=== PATIENT | male | born 1935 | race Caucasian/White ===

== ENCOUNTER 2018-04-01 09:16 | Emergency (ER) | payer MEDICARE, BC ==
--- NOTE | 2018-04-01 10:46 | UC ---
Respiratory Complaint HPI - HPI Summary HPI Summary: MD: cough, htn on exam; pulse ox = 96%. Afebrile. Patient is a 82-year-old white male who has a chronic light cough secondary to antihypertensive medication, but who comes to the urgent care center complaining of coughing spasms. He is hard of hearing but is accompanied by his who often relates his past medical history. His blood pressure is elevated but his pulse ox is 96 and he is afebrile. He appears comfortable. The spasms were worse yesterday and today, particularly this morning. Nurses note: pt c/o cough for the past few weeks. pt uses a cpap and since starting this the cough is getting worse. pt states the full face mask 1 week ago. pt states he has so much post nasal drip he starts to cough and cant stop. pt states that pt c/o sore throat yesterday. - History of Current Complaint Chief Complaint: UCRespiratory Stated Complaint: COUGH/ POST NASAL DRIP Time Seen by Provider: 04/01/18 10:42 Pain Intensity: 0 - Allergies/Home Medications Allergies/Adverse Reactions: Allergies Allergy/AdvReac Type Severity Reaction Status Date / Time No Known Allergies Allergy Verified 04/01/18 10:05 Home Medications: Home Medications Aspirin 81 mg PO 04/01/18 [History] Brimonid/Timolol 0.2/0.5%(NF) [Combigan 0.2/0.5% (NF)] 1 nabil OP 04/01/18 [ History] Hydrochlorothiazide TAB* [Hydrodiuril TAB*] 25 mg PO DAILY 04/01/18 [History Confirmed 04/01/18] Travoprost Z 0.004% OPHTH (NF) [Travatan Z 0.004% OPTH (NF)] 1 drop 04/01/18 [ History] amLODIPine/Benazepril 04/01(NF [Lotrel 04/01(NF)] 1 cap PO DAILY 04/01/18 [ History Confirmed 04/01/18] PMH/Surg Hx/FS Hx/Imm Hx - Additional Past Medical History Additional PMH: Family history significant for: -cardiovascular disease Social history: Patient is a retired teacher Previously Healthy: Yes - Surgical History Surgical History: Yes Surgery Procedure, Year, and Place: LEFT HIP REPLACEMENT. CATARACTS. PRESSURE RELEASED FROM EYES - Social History Alcohol Use: Occasionally Substance Use Type: None Smoking Status (MU): Never Smoked Tobacco Review of Systems Constitutional: Negative Respiratory: Shortness Of Breath - no significant SOB, Cough - in spasms, Other - no chest pain Cardiovascular: Negative Is Patient Immunocompromised?: No All Other Systems Reviewed And Are Negative: Yes - Comments Additional Review of Systems Comments: A 12 point review of systems was completed and was significantly positive for: cough. The remainder of the review was negative except as stated above in the HPI. Physical Exam - Summary Physical Exam Summary: Appearance: The patient is well-appearing, is in no pain or distress, and is well-nourished. Eyes: Conjunctiva are clear. Senile arcus. Pupils are equal and reactive to light and accommodation. Extra ocular muscle movement is intact. ENT: The hearing is decreased, the pharynx is normal, and the TMs are normal. There is no muffled or hoarse voice. No stridor. Neck: The neck is supple and there is no lymphadenopathy. Respiratory: The chest is nontender to palpation and without crepitus. The lungs are clear, there are normal breath sounds, and there is no respiratory distress. No wheezes, rales or rhonchi. Cardiovascular: Heart sounds reveal a regular rate and rhythm. There are no clicks, rubs or murmurs. There are no carotid bruits or thrills. Circulation is grossly intact. Abdomen: The abdomen is soft and nontender. There is no organomegaly. Bowel sounds are present and within normal limits. No point tenderness at McBurneys point. Musculoskeletal: Strength is intact. The patient moves all extremities. x. Neurological: The patient is alert. Motor and sensory are examination grossly intact. Speech is normal. Psychological: The patient displays age appropriate behavior Skin: Negative for rashes. Triage Information Reviewed: Yes Vital Signs: Initial Vital Signs Temp 98.9 F 04/01/18 10:00 Pulse 103 04/01/18 10:00 Resp 18 04/01/18 10:00 BP 158/88 04/01/18 10:00 Pulse Ox 96 04/01/18 10:00 Diagnostic Evaluation - Laboratory O2 Sat by Pulse Oximetry: 96 Respiratory Course/Dx - Course Course Of Treatment: MEDICATIONS REVIEWED: Medications have been included in the original chart and reviewed. HYPERTENSION REVIEWED: Patient is on antihypertensive medications. He will follow up in 1-4 weeks with his physician for further evaluation and treatment as needed. Chest x ray: NO ACTIVE CARDIOPULMONARY DISEASE by radiologist. 83-year-old with cough. No evidence of pneumonia or significant respiratory illness. My diagnosis is upper respiratory infection caused by virus. I have discussed this with the patient and his . - Differential Dx/Diagnosis Differential Diagnosis/HQI/PQRI: Bronchitis, Lower Resp Infection, Pneumothorax , Pulmonary Embolism Provider Diagnoses: upper respiratory viral infection Discharge - Sign-Out/Discharge Documenting (check all that apply): Patient Departure All imaging exams completed and their final reports reviewed: Yes - Discharge Plan Condition: Stable Disposition: HOME Patient Education Materials: Chronic Cough (ED), Upper Respiratory Infection ( DC) Referrals: Laura Aparicio MD [Primary Care Provider] - Additional Instructions: WE DISCUSSED: PLEASE SEEK CARE AT THE EMERGENCY DEPARTMENT IF SYMPTOMS WORSEN OR IF NEW SYMPTOMS DEVELOP. FOLLOW UP WITH YOUR PRIMARY CARE PHYSICIAN IF CONDITION CONTINUES BEYOND 3 DAYS WITHOUT IMPROVEMENT. YOUR DIAGNOSIS IS: UPPER RESPIRATORY VIRAL INFECTION YOUR PRESCRIPTION RECOMMENDATION IS: OVER THE COUNTER DECONGESTANT OTHER INSTRUCTIONS: Hypertension Discharge Instructions: Your blood pressure reading today was 158/88 indicating HYPERTENSION. Follow-up with your primary care provider within 4 weeks for blood pressure check and appropriate recommendations and treatment, as needed. Any illness causing cough, congestion, sore throat or sinus discomfort can be helped by doing the following: STAND UNDER SHOWER STREAM TO LOOSEN SECRETIONS. STAY AWAY FROM ANY SMOKE OR IRRITANTS. WHAT ELSE CAN HELP RELIEVE YOUR SYMPTOMS: GENERAL TYPES OF MEDICINE THAT MAY HELP DECONGESTANTS: helps relieve stuffiness and clears sinuses. Pseudoephedrine ( Sudafed or generic) is effective but you need to ask the pharmacist for it because it may be kept behind the counter. ANTIHISTAMINES: are NOT helpful in many colds and flus because they can worsen sore throat, dry eyes and mouth and cause drowsiness. Examples are diphenhydramine, doxylamine and chlorpheniramine. They can help dry you out if you are having profuse, clear drainage from the nose. EXPECTORANTS: helps thin mucous in the nose and chest, making it easier to clear the fluid out. Expectorants are in most combination cough/cold remedies and should be taken with plenty of water. Guaifenesin is the most common expectorant and it comes in pill or liquid form. Mucinex is an extended release form of guaifenesin. COUGH SUPPRESANT: reduces the body's cough reflex. Dextromethorphan is in over the counter products. Rarely, narcotics such as codeine or hydrocodone are used to suppress cough. SPECIFIC MEDICATIONS: Some of these may come in combination. In general, they all contain the same or similar active ingredients. The most important goal is to liquefy all the phlegm and get it out of your head and chest: The following medicines (you can buy them without prescription) may help: To help with cough: DEXTROMETHORPHAN (Vicks, Robitussin, Nyquil and other brands) To help break up phlegm: GUAIFENESIN (Mucinex, Robitussin, other brands) To help clear congestion: PSEUDOEPHEDRINE (Sudafed, Dimetapp, other brands) TRY TO CLEAR NOSE: AFRIN NASAL SPRAY: 2-3 SPRAYS PER NOSTRIL, TWICE A DAY FOR TWO DAYS ONLY. USEFUL WAYS TO FEEL BETTER WITHOUT MEDICATIONS: STAND UNDER SHOWER STREAM TO LOOSEN SECRETIONS. USE A VAPORIZOR. STAY AWAY FROM ANY SMOKE OR IRRITANTS. USE SALINE NASAL SPRAY TO KEEP FLOW OF MUCOUS FROM NOSTRILS AND SINUSES. CONSIDER USING NETI POT TO HELP WITH ALLERGIES AND CONGESTION IN THE NOSE. USE THIS THREE TIMES A WEEK. YOU CAN GET THIS AT [employer] [facility] IN [place] OR VARIOUS [employer]OR[facility]. DRINK LOTS OF WARM FLUIDS USEFUL HOME REMEDIES: WARM WATER GARGLES, WITH TSP OF SALT PER 8 OUNCES OF WATER, GARGLE FOR A FEW SECONDS AND SPIT OUT; GARGLE AND SPIT OUT; EVERY THREE HOURS. AND/OR: WARM WATER OR TEA, HONEY AND LEMON; 2-3 CUPS A DAY. FOR SORE THROAT: KEEP THROAT MOIST WITH LOZENGES; TEA AND HONEY. USE WARM WATER GARGLES 3-4 TIMES A DAY. FOLLOW UP: RE-CHECK IN 1O DAYS, NEEDED, IF YOU ARE NOT IMPROVING. RETURN HERE OR SEE YOUR PHYSICIAN. RE-CHECK SOONER IF INCREASED PAIN OR TEMPERATURE. - Billing Disposition and Condition Condition: STABLE Disposition: Home
--- NOTE | 2018-04-01 11:54 | RAD ---
HISTORY: cough COMPARISONS: April 15, 2005 VIEWS: 4: Frontal dual-energy and lateral views of the chest. FINDINGS: CARDIOMEDIASTINAL SILHOUETTE: The cardiomediastinal silhouette is normal. BUDDY: The buddy are normal. PLEURA: The costophrenic angles are sharp. No pleural abnormalities are noted. LUNG PARENCHYMA: The lungs are clear. ABDOMEN: The upper abdomen is clear. There is no subphrenic gas. BONES AND SOFT TISSUES: Degenerative changes are noted along the spine. OTHER: None. IMPRESSION: NO ACTIVE CARDIOPULMONARY DISEASE.
[2018-04-01 12:29] VITALS: BP 161/82
== END 2018-04-01 12:23 | disposition home or self-care (01) ==
LOC: UCEAST 09:16
DX: J06.9 Acute upper respiratory infection, unspecified (principal); Z96.642 Presence of left artificial hip joint
CPT/HCPCS: 71046; 81003; 99211; G0463

== ENCOUNTER 2018-10-26 17:04 | Observation (INO) | payer MEDICARE, BC ==
--- OUTSIDE RECORDS SUMMARY | 2018-10-26 17:29 | XMS REPORT | Continuity of Care Document ---
:1935 External Reference #:[id number] Author Name Laura Aparicio M.D. Address [address] [facility] [address] [place] [address] Care Team Providers Name Role Phone Laura Aparicio MD Care Team Information Bank Messenger Unavailable Payers Date Identification Numbers Payment Provider Subscriber Policy Number: [id number] Medicare Kash Raines PayID: [id number] [address] [place] [address] Effective: 2011 Policy Number: [id number] [facility] Classic Blue Kash Raines [address] [address] [place] [address] Problems Active Problems Provider Date Benign essential hypertension Laura Aparicio M.D. Onset: 10/28/2011 Osteoarthritis Laura Aparicio M.D. Onset: 10/28/2011 Mixed hyperlipidemia Laura Aparicio M.D. 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 Onset: obstruction Cataract ALL Stahl Onset: 10/28/2011 Glaucoma Laura Aparicio M.D. Onset: 10/28/2011 Hearing loss Laura Aparicio M.D. Onset: 11/13/2012 Low back pain Laura Aparicio M.D. Onset: 11/13/2012 Essential hypertension Laura Aparicio M.D. Onset: 03/25/2015 Family History Date Family Member(s) Observation Comments Father due to at age 97 () Father due to PAssed d/t old age () Mother due to at age 67 () Mother Hypertension Mother due to Cancer () Children 2 First Son 49 First Daughter 47 Siblings 7 First Brother due to Auto Accident () - age 33 Second Brother Hypertension Third Brother heart issues Third Brother 84 First Sister No Current Problems Second Sister Hypertension Third Sister memmory issues Third Sister 88 Third Sister Cancer Fourth Sister Hypertension Social History Type Date Description Comments Sex Unknown Marital Status Legal Status: Tobacco Use Start: Unknown Never Smoked Cigarettes ETOH Use Currently consumes alcohol pt states he drinks a few times a week Tobacco Use Start: Unknown Patient has never smoked Smoking Status Reviewed: 07/04/17 Patient has never smoked Allergies, Adverse Reactions, Alerts Description No Known Drug Allergies Medications Active Medications SIG Qnty Indications Ordering Date Provider Benzonatate 1 cap by 60caps J18.0 Laura Aparicio 06/30/2018 100mg Capsules mouth every 4 M., M.D. hours as needed AT Night Ventolin HFA 2 puff by 1units J18.0 Laura Aparicio 06/30/2018 108(90Base) mcg/Act mouth every 4 M., M.D. Aerosol hours as needed Hearing Aid Adjusment And h90.3 H90.3 Laura Aparicio 06/24/2017 Repair M., M.D. Hydrochlorothiazide 1 tab by 90tabs I10 Laura Aparicio 06/19/2015 25mg Tablets mouth every M., M.D. day Centrum Silver Adult 50+ 1 tab by Laura Aparicio 03/25/2015 Adult 50 mouth every M., M.D. Tablets day Vitamin C 1 by mouth Laura Aparicio 03/25/2015 500mg Tablets every day M., M.D. Aspirin Ec Lo-Dose 1 by mouth I10 Laura Aparicio 02/17/[address] every day M., M.DKarina E78.2 Combigan 1 drop both eyes H40.89 Laura Aparicio, 10/28/2011 0.2-0.5% twice a day M.D. Solution Travatan Z 1 drop both eyes H40.89 Laura Aparicio, 10/28/2011 0.004% every day M.D. Solution Lotrel 1 cap by mouth 90caps I10 Markus, bailey Willis, 10/07/2011 10-40mg Capsules every day M.D. History Medications Azithromycin 1 tab by mouth 10tabs J20.9 [facility] 06/30/2018 - 500mg Tablets every day x 10 M., M.D. 07/10/2018 days Cyanocobalamin inject 1000mcg 1ml F03.90 [facility] 07/26/2017 - 1000mcg/ML today given to l Lazaro MKarinaDKarina 12/11/2017 Solution deltoid Meclizine HCL 1 tab by mouth 90tabs H81.13 [facility] 06/19/2015 - 25mg Tablets every 6 hours as M. M.D. 06/29/2018 needed Prednisone 3 tab by mouth 18tabs [facility] 06/19/2015 - 20mg Tablets daily 3 days, M. M.D. 06/28/2015 then 2 tab daily x 3 d , then 1 tab daily 3d Azithromycin 1 by mouth every 6tabs J20.9 [facility] 06/09/2015 - 500mg Tablets day M., M.D. 06/12/2015 J01.40 Calcium 1000 + D 1 tab by mouth [facility] 03/25/2015 - every day M., M.D. 06/13/2018 2007-391jo-Qeca Tablets Amoxicillin 1 by mouth 30tabs 466.0 [facility] 09/27/2014 - 500mg Tablets three times a M., M.D. 10/07/2014 day 461.8 382.9 Doxycycline Hyclate take 2 capsules 2caps E906.4 [facility] 11/12/2013 - by mouth x1 M., M.D. 11/13/2013 100mg Capsules 682.2 Cipro 1 twice a day 20tabs 599.70 Markus, bailey Willis, 03/01/2012 - 500mg M.D. 03/11/2012 Tablets Zocor 1/2 tab by mouth 90tabs 272.2 Markus, bailey Willis, 02/17/2012 - 20mg every night M.D. 08/17/2012 Tablets Medications Administered in Office Medication SIG Qnty Indications Ordering Provider Date B12 Laura Aparicio M.D. 07/26/2017 Injection Immunizations CPT Code Status Date Vaccine Lot # [id number] Given 03/22/2018 Influenza,Unspecified U-Flu Given 04/04/2017 Influenza,Unspecified [id number] Given 03/15/2016 Flu Vaccine [id number] Given 03/21/2015 Flu Vaccine 3+Yrs Old(Fluzone) 10255 Given 03/29/2014 Flu Vaccine 23429 Given 12/07/2013 TDaP [id number] Given 04/29/2008 Flu Vaccine [id number] Given 04/07/2007 Flu Vaccine Vital Signs Date Vital Result Comment 10/26/2018 4:06pm BP Systolic 146 mmHg BP Diastolic 72 mmHg Height 64 inches 5'4" 06/30/2018 9:05am BP Systolic 144 mmHg BP Diastolic 72 mmHg Height 64 inches 5'4" Weight 179.00 lb BMI (Body Mass Index) 30.7 kg/m2 Heart Rate 97 /min Body Temperature 100.1 F Respiratory Rate 16 /min 06/22/2018 10:28am BP Systolic 126 mmHg BP Diastolic 64 mmHg Height 64 inches 5'4" Weight 183.00 lb BMI (Body Mass Index) 31.4 kg/m2 Heart Rate 92 /min Respiratory Rate 16 /min 01/03/2018 4:08pm BP Systolic 124 mmHg BP Diastolic 72 mmHg Height 64 inches 5'4" Weight 180.00 lb BMI (Body Mass Index) 30.9 kg/m2 Heart Rate 92 /min Respiratory Rate 14 /min 08/22/2017 8:41am BP Systolic 124 mmHg BP Diastolic 80 mmHg Height 64 inches 5'4" Weight 179.00 lb BMI (Body Mass Index) 30.7 kg/m2 Heart Rate 86 /min Respiratory Rate 18 /min 07/26/2017 11:22am BP Systolic 132 mmHg BP Diastolic 80 mmHg Height 64 inches 5'4" Weight 179.00 lb BMI (Body Mass Index) 30.7 kg/m2 Heart Rate 86 /min Respiratory Rate 18 /min 07/04/2017 9:01am BP Systolic 134 mmHg BP Diastolic 78 mmHg Height 64 inches 5'4" Weight 179.00 lb BMI (Body Mass Index) 30.7 kg/m2 Heart Rate 81 /min Respiratory Rate 18 /min 01/11/2017 8:29am BP Systolic 122 mmHg BP Diastolic 64 mmHg Height 64 inches 5'4" Weight 180.00 lb BMI (Body Mass Index) 30.9 kg/m2 Heart Rate 72 /min Respiratory Rate 16 /min 03/24/2016 8:36am BP Systolic 134 mmHg BP Diastolic 78 mmHg Height 64 inches 5'4" Weight 178.00 lb BMI (Body Mass Index) 30.6 kg/m2 Heart Rate 66 /min Respiratory Rate 18 /min 11/13/2015 1:52pm BP Systolic 121 mmHg BP Diastolic 76 mmHg Height 64 inches 5'4" Weight 179.00 lb BMI (Body Mass Index) 30.7 kg/m2 Heart Rate 95 /min Respiratory Rate 16 /min 09/26/2015 9:26am BP Systolic 132 mmHg BP Diastolic 82 mmHg Height 64 inches 5'4" Weight 181.00 lb BMI (Body Mass Index) 31.1 kg/m2 Heart Rate 84 /min Respiratory Rate 18 /min 08/15/2015 8:34am BP Systolic 136 mmHg BP Diastolic 87 mmHg Height 64 inches 5'4" Weight 179.00 lb BMI (Body Mass Index) 30.7 kg/m2 Heart Rate 72 /min Respiratory Rate 18 /min 07/18/2015 4:00pm BP Systolic 150 mmHg BP Diastolic 89 mmHg Height 64 inches 5'4" Weight 177.00 lb BMI (Body Mass Index) 30.4 kg/m2 Heart Rate 90 /min Respiratory Rate 18 /min 06/19/2015 2:34pm BP Systolic 164 mmHg BP Diastolic 91 mmHg Height 64 inches 5'4" Weight 177.00 lb BMI (Body Mass Index) 30.4 kg/m2 Heart Rate 84 /min Respiratory Rate 18 /min 06/09/2015 10:25am BP Systolic 169 mmHg BP Diastolic 91 mmHg Height 64 inches 5'4" Weight 181.00 lb BMI (Body Mass Index) 31.1 kg/m2 Heart Rate 83 /min Body Temperature 97.4 F Respiratory Rate 18 /min 05/19/2015 1:43pm BP Systolic 152 mmHg BP Diastolic 90 mmHg Height 64 inches 5'4" Weight 182.00 lb BMI (Body Mass Index) 31.2 kg/m2 Heart Rate 84 /min Respiratory Rate 18 /min 03/25/2015 8:42am BP Systolic 158 mmHg BP Diastolic 92 mmHg Height 64 inches 5'4" Weight 178.00 lb BMI (Body Mass Index) 30.6 kg/m2 Heart Rate 73 /min Respiratory Rate 18 /min 09/27/2014 9:53am BP Systolic 160 mmHg machine BP Diastolic 95 mmHg machine BP Systolic Recheck 162 mmHg manual BP Diastolic Recheck 88 mmHg manual Height 64 inches 5'4" Weight 178.00 lb BMI (Body Mass Index) 30.6 kg/m2 Heart Rate 86 /min Body Temperature 97.0 F Respiratory Rate 18 /min 08/28/2014 8:52am BP Systolic 144 mmHg BP Diastolic 82 mmHg Height 64 inches 5'4" Weight 176.00 lb BMI (Body Mass Index) 30.2 kg/m2 Heart Rate 75 /min Respiratory Rate 18 /min 02/26/2014 9:43am BP Systolic 149 mmHg BP Diastolic 90 mmHg Height 64 inches 5'4" Weight 180.00 lb BMI (Body Mass Index) 30.9 kg/m2 Heart Rate 82 /min Respiratory Rate 20 /min 12/07/2013 11:28am BP Systolic 144 mmHg BP Diastolic 90 mmHg Height 64 inches 5'4" Weight 180.00 lb BMI (Body Mass Index) 30.9 kg/m2 Heart Rate 102 /min Respiratory Rate 18 /min 11/12/2013 9:21am BP Systolic 143 mmHg BP Diastolic 84 mmHg Height 64 inches 5'4" Weight 174.00 lb BMI (Body Mass Index) 29.9 kg/m2 Heart Rate 79 /min Body Temperature 97.2 F Respiratory Rate 18 /min 09/04/2013 8:36am BP Systolic 147 mmHg BP Diastolic 90 mmHg Height 64 inches 5'4" Weight 182.00 lb BMI (Body Mass Index) 31.2 kg/m2 Heart Rate 80 /min Body Temperature 97.6 F Respiratory Rate 18 /min 06/07/2013 8:58am BP Systolic 145 mmHg BP Diastolic 87 mmHg Height 64 inches 5'4" Weight 179.00 lb BMI (Body Mass Index) 30.7 kg/m2 Heart Rate 78 /min Respiratory Rate 20 /min 05/09/2013 8:56am BP Systolic 150 mmHg BP Diastolic 85 mmHg Height 64 inches 5'4" Weight 180.00 lb BMI (Body Mass Index) 30.9 kg/m2 Heart Rate 75 /min Respiratory Rate 18 /min 05/02/2013 8:26am BP Systolic 164 mmHg BP Diastolic 95 mmHg Height 64 inches 5'4" Weight 179.00 lb BMI (Body Mass Index) 30.7 kg/m2 Heart Rate 78 /min Respiratory Rate 18 /min 02/13/2013 9:22am BP Systolic 122 mmHg BP Diastolic 80 mmHg Height 64 inches 5'4" Weight 178.00 lb BMI (Body Mass Index) 30.6 kg/m2 Heart Rate 74 /min Respiratory Rate 16 /min 11/13/2012 11:09am BP Systolic 150 mmHg BP Diastolic 80 mmHg BP Systolic Recheck 146 mmHg BP Diastolic Recheck 80 mmHg Height 64 inches 5'4" Weight 174.00 lb BMI (Body Mass Index) 29.9 kg/m2 Heart Rate 64 /min Respiratory Rate 20 /min 10/30/2012 1:20pm BP Systolic 138 mmHg BP Diastolic 76 mmHg Height 64 inches 5'4" Weight 177.00 lb BMI (Body Mass Index) 30.4 kg/m2 Heart Rate 78 /min Respiratory Rate 218 /min 08/17/2012 9:53am BP Systolic 140 mmHg BP Diastolic 82 mmHg Height 64 inches 5'4" Weight 179.00 lb BMI (Body Mass Index) 30.7 kg/m2 Heart Rate 81 /min Respiratory Rate 14 /min 08/03/2012 8:59am BP Systolic 130 mmHg BP Diastolic 80 mmHg Height 64 inches 5'4" Weight 179.00 lb BMI (Body Mass Index) 30.7 kg/m2 Heart Rate 79 /min Respiratory Rate 14 /min 07/25/2012 9:37am BP Systolic 134 mmHg BP Diastolic 80 mmHg Height 64 inches 5'4" Weight 178.00 lb BMI (Body Mass Index) 30.6 kg/m2 Heart Rate 83 /min Respiratory Rate 14 /min 03/01/2012 2:20pm BP Systolic 116 mmHg BP Diastolic 68 mmHg Height 64 inches 5'4" Weight 175.00 lb BMI (Body Mass Index) 30.0 kg/m2 Heart Rate 88 /min Respiratory Rate 16 /min 02/28/2012 10:33am BP Systolic 146 mmHg BP Diastolic 56 mmHg Height 64 inches 5'4" Weight 175.00 lb BMI (Body Mass Index) 30.0 kg/m2 Heart Rate 70 /min Last Menstrual Period 0 Respiratory Rate 15 /min 02/17/2012 10:35am BP Systolic 128 mmHg BP Diastolic 70 mmHg Height 64 inches 5'4" Weight 175.00 lb BMI (Body Mass Index) 30.0 kg/m2 Heart Rate 80 /min 10/28/2011 9:40am BP Systolic 125 mmHg BP Diastolic 80 mmHg BP Systolic Recheck 119 mmHg BP Diastolic Recheck 80 mmHg Height 64 inches 5'4" Weight 177.00 lb BMI (Body Mass Index) 30.4 kg/m2 Heart Rate 67 /min Respiratory Rate 14 /min 10/07/2011 10:21am BP Systolic 146 mmHg BP Diastolic 85 mmHg Height 64 inches 5'4" Weight 175.00 lb BMI (Body Mass Index) 30.0 kg/m2 Heart Rate 61 /min Last Menstrual Period 0 Respiratory Rate 14 /min Results Test Date Facility Test Result H/L Range Note Laboratory test 06/22/2018 [facility] Vitamin B12 @ 663 pg/mL (193-986 ) finding [address] (605)- - 25 Hydroxy Vit D @ 43 ng/mL (31-100) 1 Hemoglobin A1c 06/22/2018 [facility] Hemoglobin A1c @ 6.1 % High (4.0- 6.0) 2 [address] (60)- - Est Average Glucose 128 mg/dL CBC With Diff 06/22/2018 [facility] WBC 5.9 10*3/uL (4.1-11.0) [address] (605)- - RBC 4.82 10*6/uL (4.60-6.10) HGB 14.6 g/dL (13.5-18.0) HCT 43.6 % (41.0-53.0) MCV 90.5 fL (80.0-95.0) MCH 30.3 pg (27.0-32.0) MCHC 33.5 g/dL (32.0-36.0) RDW 13.9 % (10.5-14.5) PLT 244 10*3/uL (150-450) MPV 8.3 fL (7.1-10.7) Neut % 61.2 % (35.0-75.0) Lymph % 23.7 % (16.0-52.0) Wilcox % 10.8 % High (0.0-8.0) Eos % 3.4 % (0.0-5.0) Baso % 0.9 % (0.0-4.0) Neut # 3.6 10*3/uL (1.8-7.7) Lymph # 1.4 10*3/uL (1.2-4.8) Wilcox # 0.6 10*3/uL (0.0-0.8) Eos # 0.2 10*3/uL (0.0-0.5) Baso # 0.1 10*3/uL (0.0-0.2) CMP 06/22/2018 [facility] Sodium 142 mmol/L (136-145) [address] (607)- - Potassium 3.7 mmol/L (3.6-5.2) Chloride 105 mmol/L (100-108) Co2 29 mmol/L (22-31) Anion Gap 8 mmol/L (7-16) Urea Nitrogen 22 mg/dL (7-24) Creatinine 1.33 mg/dL High (0.80-1.30) BUN/Creat Ratio 16.5 RATIO (10.0-20.0) Glucose 115 mg/dL High (70-99) Calcium 8.3 mg/dL Low (8.4-10.2) Total Protein 6.9 g/dL (6.4-8.2) Albumin 3.8 g/dL (3.2-4.5) Globulin 3.1 g/dL (2.7-4.3) Alb/Glob Ratio 1.2 RATIO Alkaline Phosphatase 69 U/L (45-117) Bilirubin,Total 0.5 mg/dL (0.0-1.0) Ast (Sgot) 21 U/L (11-39) Alt (SGPT) 22 U/L (12-78) GFR 51 ml/min/1.73m2 Low (>59) GFR ( Amer) >60 ml/min/1.73m2 (>59) GFR Interpretation <SEE NOTE> 3 Lipid Extended Panel 06/22/2018 [facility] Appearance CLEAR (Clear) [address] (607)- - Cholesterol @ 220 mg/dL High (0-200) Triglyceride @ 96 mg/dL (30-200) HDL Cholesterol @ 53 mg/dL (>40) 4 Chol/HDL Ratio 4.2 RATIO 5 Direct LDL @ 141 mg/dL High (<130) 6 VLDL (Calc) 26 mg/dL (0-30) Laboratory 06/22/2018 [facility] TSH,Ultrasensitive @ 1.490 (0.360- 4.170) test finding [address] mIU/L (607)- - Poc 04/01/2018 [facility] Poc Glucose, Urine Negative Negative Urinalysis Poc Bilirubin, Urine Negative Negative Poc Ketone, Urine Negative Negative Poc Specific [place], Urine 1.020 N 1.010-1.030 Poc Blood, Urine Negative Negative Poc pH, Urine 7.0 N 5-9 Poc Protein, Urine Negative Negative Poc Urobilinogen, Urine 0.2 Negative Poc Nitrite, Urine Negative Negative Poc Leukocytes, Urine Negative Negative Poc Color, Urine Yellow Poc Clarity, Urine Clear 7 Lipid Profile (Trig/Chol/HDL) 11/10/2017 [facility] Triglycerides 110 mg/dL 8 Cholesterol 215 mg/dL 9 HDL Cholesterol 48.6 mg/dL 10 LDL Cholesterol 144 mg/dL 11 Laboratory test 11/10/2017 [facility] C Reactive 11.28 mg/L High < 5.00 12 finding Protein TSH (Thyroid Stim Horm) 1.58 mcIU/mL N 0.34-5.60 Free T4 (Free Thyroxine) 1.05 ng/dL N 0.61-1.12 Folic Acid (Folate) > 20.00 ng/mL >3.99 Vitamin B12 571 pg/mL N 180-914 13 Erythrocyte Sed Rate 19 mm/Hr N 0-40 Homocysteine 13 mcmol/L 14 Laboratory test 07/26/2017 [facility] TSH (Thyroid 1.34 mcIU/mL N 0.34-5.60 15 finding Stim Horm) Vitamin B12 553 pg/mL N 180-914 16 Folic Acid (Folate) > 20.00 ng/mL >3.99 17 Erythrocyte Sed Rate 13 mm/Hr N 0-40 18 Vitamin D Total 25(Oh) 38.0 ng/mL N 20-50 19 CBC Auto Diff 07/04/2017 [facility] White Blood Count 5.9 10^3/uL N 3.5-10.8 Red Blood Count 4.79 10^6/uL N 4.0-5.4 Hemoglobin 14.5 g/dL N 14.0-18.0 Hematocrit 43 % N 42-52 Mean Corpuscular Volume 89 fL N 80-94 Mean Corpuscular Hemoglobin 30 pg N 27-31 Mean Corpuscular HGB Conc 34 g/dL N 31-36 Red Cell Distribution Width 14 % N 10.5-15 Platelet Count 241 10^3/uL N 150-450 Mean Platelet Volume 8 um3 N 7.4-10.4 Abs Neutrophils 3.6 10^3/uL N 1.5-7.7 Abs Lymphocytes 1.4 10^3/uL N 1.0-4.8 Abs Monocytes 0.7 10^3/uL N 0-0.8 Abs Eosinophils 0.2 10^3/uL N 0-0.6 Abs Basophils 0 10^3/uL N 0-0.2 Abs Nucleated RBC 0 10^3/uL Granulocyte % 60.7 % N 38-83 Lymphocyte % 24.1 % Low 25-47 Monocyte % 11.6 % High 1-9 Eosinophil % 3.1 % N 0-6 Basophil % 0.5 % N 0-2 Nucleated Red Blood Cells % 0 Comp Metabolic Panel 07/04/2017 [facility] Sodium 140 mmol/L N 133- 145 Potassium 3.8 mmol/L N 3.5-5.0 Chloride 101 mmol/L N 101-111 Co2 Carbon Dioxide 33 mmol/L High 22-32 Anion Gap 6 mmol/L N 2-11 Glucose 94 mg/dL N 70-100 Blood Urea Nitrogen 20 mg/dL N 6-24 Creatinine 1.36 mg/dL High 0.67-1.17 BUN/Creatinine Ratio 14.7 N 8-20 Calcium 9.4 mg/dL N 8.6-10.3 Total Protein 6.6 g/dL N 6.4-8.9 Albumin 4.2 g/dL N 3.2-5.2 Globulin 2.4 g/dL N 2-4 Albumin/Globulin Ratio 1.8 N 1-3 Total Bilirubin 0.60 mg/dL N 0.2-1.0 Alkaline Phosphatase 56 U/L N 34-104 Alt 11 U/L N 7-52 Ast 14 U/L N 13-39 Egfr Non- 50.3 >60 Egfr 64.7 >60 20 Lipid Profile (Trig/Chol/HDL) 07/04/2017 [facility] Triglycerides 87 mg /dL 21 Cholesterol 195 mg/dL 22 HDL Cholesterol 50.4 mg/dL 23 LDL Cholesterol 127 mg/dL 24 PSA Free And Total 07/04/2017 [facility] PSA Total 2.2 ng/mL <=7.2 PSA Free 0.5 ng/mL PSA Free/Total See Comment ratio 25 Laboratory test 07/04/2017 [facility] Hemoglobin A1c 5.6 % N 4.0-5.6 26 finding (Glyco HGB) CBC Auto Diff 01/11/2017 [facility] White Blood Count 6.1 N 3.5-10.8 10^3/uL Red Blood Count 4.85 10^6/uL N 4.0-5.4 Hemoglobin 14.5 g/dL N 14.0-18.0 Hematocrit 44 % N 42-52 Mean Corpuscular Volume 90 fL N 80-94 Mean Corpuscular Hemoglobin 30 pg N 27-31 Mean Corpuscular HGB Conc 33 g/dL N 31-36 Red Cell Distribution Width 14 % N 10.5-15 Platelet Count 219 10^3/uL N 150-450 Mean Platelet Volume 8 um3 N 7.4-10.4 Abs Neutrophils 3.7 10^3/uL N 1.5-7.7 Abs Lymphocytes 1.5 10^3/uL N 1.0-4.8 Abs Monocytes 0.7 10^3/uL N 0-0.8 Abs Eosinophils 0.2 10^3/uL N 0-0.6 Abs Basophils 0 10^3/uL N 0-0.2 Abs Nucleated RBC 0 10^3/uL N Granulocyte % 61.0 % N 38-83 Lymphocyte % 24.1 % Low 25-47 Monocyte % 11.2 % High 1-9 Eosinophil % 3.2 % N 0-6 Basophil % 0.5 % N 0-2 Nucleated Red Blood Cells % 0.1 N Comp Metabolic Panel 01/11/2017 [facility] Sodium 138 mmol/L N 133- 145 Potassium 3.8 mmol/L N 3.5-5.0 Chloride 102 mmol/L N 101-111 Co2 Carbon Dioxide 30 mmol/L N 22-32 Anion Gap 6 mmol/L N 2-11 Glucose 90 mg/dL N 70-100 Blood Urea Nitrogen 22 mg/dL N 6-24 Creatinine 1.20 mg/dL High 0.67-1.17 BUN/Creatinine Ratio 18.3 N 8-20 Calcium 8.8 mg/dL N 8.6-10.3 Total Protein 6.7 g/dL N 6.4-8.9 Albumin 4.2 g/dL N 3.2-5.2 Globulin 2.5 g/dL N 2-4 Albumin/Globulin Ratio 1.7 N 1-3 Total Bilirubin 0.60 mg/dL N 0.2-1.0 Alkaline Phosphatase 58 U/L N 34-104 Alt 14 U/L N 7-52 Ast 15 U/L N 13-39 Egfr Non- 58.1 N >60 Egfr 74.7 N >60 27 Lipid Profile (Trig/Chol/HDL) 01/11/2017 [facility] Triglycerides 77 mg /dL N 28 Cholesterol 205 mg/dL N 29 HDL Cholesterol 51.7 mg/dL N 30 LDL Cholesterol 138 mg/dL N 31 Laboratory test 01/11/2017 [facility] PSA Screening 3.356 ng/mL N 0- 4.000 32 finding Hemoglobin A1c (Glyco HGB) 5.7 % N Less than 6.0 33 TSH (Thyroid Stim Horm) 2.01 mcIU/mL N 0.34-5.60 34 CBC With Diff 03/24/2016 [facility] WBC 5.6 10*3/uL (4.1-11.0) [address] (607)- - RBC 5.01 10*6/uL (4.60-6.10) HGB 15.0 g/dL (13.5-18.0) HCT 44.6 % (41.0-53.0) MCV 89.2 fL (80.0-95.0) MCH 30.0 pg (27.0-32.0) MCHC 33.6 g/dL (32.0-36.0) RDW 14.2 % (10.5-14.5) PLT 220 10*3/uL (150-450) MPV 9.1 fL (7.1-10.7) Neut % 55.0 % (35.0-75.0) Band % 1.0 % (0.0-11.0) Lymph % 25.0 % (16.0-52.0) Atyp Lymph % 1.0 % (0.0-5.0) Wilcox % 11.0 % High (0.0-8.0) Eos % 6.0 % High (0.0-5.0) Baso % 1.0 % (0.0-4.0) Neut # 3.1 10*3/uL (1.8-7.7) Band # 0.1 10*3/uL Lymph # 1.4 10*3/uL (1.2-4.8) Atyp Lymph # 0.1 10*3/uL Wilcox # 0.6 10*3/uL (0.0-0.8) Eos # 0.3 10*3/uL (0.0-0.5) Baso # 0.1 10*3/uL (0.0-0.2) Aniso 1+ CMP 03/24/2016 [facility] Sodium 142 mmol/L (136-145) [address] (606)- - Potassium 3.9 mmol/L (3.6-5.2) Chloride 102 mmol/L (100-108) Co2 31 mmol/L (22-31) Anion Gap 9 mmol/L (7-16) Urea Nitrogen 22 mg/dL (7-24) Creatinine 1.09 mg/dL (0.80-1.30) BUN/Creat Ratio 20.2 RATIO High (10.0-20.0) Glucose 88 mg/dL (70-99) Calcium 8.7 mg/dL (8.4-10.2) Total Protein 7.0 g/dL (6.4-8.2) Albumin 4.0 g/dL (3.2-4.5) Globulin 3.0 g/dL (2.7-4.3) Alb/Glob Ratio 1.3 RATIO Alkaline Phosphatase 74 U/L (45-117) Bilirubin,Total 0.4 mg/dL (0.0-1.0) Ast (Sgot) 15 U/L (11-39) Alt (SGPT) 21 U/L (12-78) GFR >60 ml/min/1.73m2 (>59) GFR ( Amer) >60 ml/min/1.73m2 (>59) GFR Interpretation <SEE NOTE> 35 Lipid 03/24/2016 [facility] Cholesterol @ 204 mg/dL High (0-200) [address] (209)- - Triglyceride @ 82 mg/dL (30-200) HDL Cholesterol @ 56 mg/dL (>40) 36 Chol/HDL Ratio 3.6 RATIO 37 LDL Chol (Calc) 132 mg/dL High (<130) 38 Laboratory 03/24/2016 [facility] TSH,Ultrasensitive @ 1.850 (0.360- 4.170) test finding [address] mIU/L (607)- - Hemoglobin A1c 03/24/2016 [facility] Hemoglobin A1c @ 5.6 % (4.0-6.0) [address] (607)- - Est Average Glucose 114 mg/dL 39 Laboratory test 03/24/2016 [facility] PSA,Total @ 1.9 ng/mL (0.0-4.0) 40 finding [address] (607)- - CBC Auto Diff 08/15/2015 [facility] White Blood 5.8 10^3/uL N 3.5- 10.8 Count Red Blood Count 4.96 10^6/uL N 4.0-5.4 Hemoglobin 14.9 g/dL N 14.0-18.0 Hematocrit 44 % N 42-52 Mean Corpuscular Volume 89 fL N 80-94 Mean Corpuscular Hemoglobin 30 pg N 27-31 Mean Corpuscular HGB Conc 34 g/dL N 31-36 Red Cell Distribution Width 14 % N 10.5-15 Platelet Count 205 10^3/uL N 150-450 Mean Platelet Volume 9 um3 N 7.4-10.4 Abs Neutrophils 3.5 10^3/uL N 1.5-7.7 Abs Lymphocytes 1.3 10^3/uL N 1.0-4.8 Abs Monocytes 0.7 10^3/uL N 0-0.8 Abs Eosinophils 0.2 10^3/uL N 0-0.6 Abs Basophils 0 10^3/uL N 0-0.2 Abs Nucleated RBC 0.01 10^3/uL N Granulocyte % 61.6 % N 38-83 Lymphocyte % 22.6 % Low 25-47 Monocyte % 12.4 % High 1-9 Eosinophil % 2.9 % N 0-6 Basophil % 0.5 % N 0-2 Nucleated Red Blood Cells % 0.1 N Comp Metabolic Panel 08/15/2015 [facility] Sodium 141 mmol/L N 133- 145 Potassium 3.5 mmol/L N 3.5-5.0 Chloride 103 mmol/L N 101-111 Co2 Carbon Dioxide 31 mmol/L N 22-32 Anion Gap 7 mmol/L N 2-11 Glucose 84 mg/dL N 70-100 Blood Urea Nitrogen 18 mg/dL N 6-24 Creatinine 1.09 mg/dL N 0.67-1.17 BUN/Creatinine Ratio 16.5 N 8-20 Calcium 9.1 mg/dL N 8.6-10.3 Total Protein 6.6 g/dL N 6.4-8.9 Albumin 4.3 g/dL N 3.2-5.2 Globulin 2.3 g/dL N 2-4 Albumin/Globulin Ratio 1.9 N 1-3 Total Bilirubin 0.60 mg/dL N 0.2-1.0 Alkaline Phosphatase 46 U/L N 34-104 Alt 14 U/L N 7-52 Ast 16 U/L N 13-39 Egfr Non- 65.3 N >60 Egfr 83.9 N >60 41 Lipid Profile (Trig/Chol/HDL) 08/15/2015 [facility] Triglycerides 94 mg /dL N 42 Cholesterol 198 mg/dL N 43 HDL Cholesterol 50.6 mg/dL N 44 LDL Cholesterol 129 mg/dL N 45 Laboratory test 08/15/2015 [facility] TSH (Thyroid 1.49 ?IU/mL N 0.34 -5.60 finding Stim Horm) Hemoglobin A1c (Glyco HGB) 5.8 % N Less than 6.0 46 Vitamin D Total 25(Oh) 41.8 ng/mL N 30-50 CBC W/Automated Diff 03/25/2015 [facility] White Blood Count 5.0 K/uL 3.4- 10.5 Red Blood Count 4.99 M/uL 4.20-5.80 Hemoglobin 14.8 gm/dL 12.8-17.0 Hematocrit 45.3 % 38.0-48.0 Mean Cell Volume 90.8 fl 80.0-96.0 Mean Corpuscular HGB 29.7 pg 27.0-33.0 Mean Corpuscular HGB Conc 32.7 g/dL 31.7-36.0 Platelet Count 222 K/uL 150-400 Red Cell Distri Width SD 45.4 fl 36-51 Red Cell Distri Width %CV 14.1 % 11.6-15.8 Mean Platelet Volume 10.5 fL 6.6-10.6 Neut% 60.1 % 33.0-73.0 Lymph % 23.6 % 17.0-56.0 Wilcox % 12.1 % High 0.0-10.0 Eo% 4.0 % 0.0-5.0 Bas% 0.2 % 0.1-1.0 Neut# 2.98 K/uL 1.8-7.0 Lymph # 1.17 K/uL Low 1.8-7.0 Wilcox # 0.60 K/uL 0.0-0.8 Eos # 0.20 K/uL 0.0-0.5 Baso # 0.01 K/uL Low 0.1-0.2 Comprehensive Metabolic Panel 03/25/2015 [facility] Glucose 81 mg/dL 74- 106 BUN 13 mg/dL 7-18 Creatinine 1.0 mg/dL 0.6-1.3 Glom Filtration Rate, Estimate >60 mL/min >60 If >60 mL/min >60 47 BUN/Creat 13.0 ratio Sodium 140 mmol/L 136-145 Potassium 3.7 mmol/L 3.5-5.1 Chloride 104 mmol/L 98-107 Carbon Dioxide 29 mmol/L 21-32 Anion Gap 7 mEq/L Low 8-16 Calcium 8.5 mg/dL 8.5-10.1 Total Protein 7.1 g/dL 6.4-8.2 Albumin 4.0 g/dL 3.4-5.0 Globulin 3.1 g/dL 1.9-4.3 Alb/Glob 1.3 ratio Bilirubin,Total 0.5 mg/dL 0.2-1.0 Sgot/Ast 14 U/L Low 15-37 48 SGPT/Alt 24 U/L 12-78 Alkaline Phosphatase 76 U/L 45-117 Laboratory test 03/25/2015 [facility] C-Reactive 7.89 mg/L <3.0 finding Protein,Cardiac Glycohemoglobin A1c 03/25/2015 [facility] Glycohemoglobin (A1c) 5.7 % 4.2- 6.3 49 eAG 117 mg/dL LDL Cholesterol Profile 03/25/2015 [facility] Cholesterol 203 mg/dL < 200 50 Triglycerides 97 mg/dL < 150 51 HDL Cholesterol 57 mg/dL > 40 52 LDL-Cholesterol 127 mg/dL < 100 53 Laboratory test 03/25/2015 [facility] Thyroid Stim 1.58 uIU/mL 0.36-3.74 finding Hormone Vitamin B12 And 03/25/2015 [facility] Vitamin B12 654 pg/mL 193-986 Folate Folic Acid 15.7 ng/mL 3.1-17.5 Laboratory test 03/25/2015 [facility] Vitamin D,25-Hydroxy 36.6 ng/mL 30.0 -100.0 54 finding CBC W/Automated 08/28/2014 [facility] White Blood Count 5.4 K/uL 3.4-10.5 Diff Red Blood Count 5.09 M/uL 4.20-5.80 Hemoglobin 15.5 gm/dL 12.8-17.0 Hematocrit 47.0 % 38.0-48.0 Mean Cell Volume 92.3 fl 80.0-96.0 Mean Corpuscular HGB 30.5 pg 27.0-33.0 Mean Corpuscular HGB Conc 33.0 g/dL 31.7-36.0 Platelet Count 226 K/uL 150-400 Red Cell Distri Width SD 46.0 fl 36-51 Red Cell Distri Width %CV 14.0 % 11.6-15.8 Mean Platelet Volume 10.5 fL 6.6-10.6 Neut% 64.9 % 33.0-73.0 Lymph % 20.7 % 17.0-56.0 Wilcox % 11.1 % High 0.0-10.0 Eo% 3.1 % 0.0-5.0 Bas% 0.2 % 0.1-1.0 Neut# 3.50 K/uL 1.8-7.0 Lymph # 1.12 K/uL Low 1.8-7.0 Wilcox # 0.60 K/uL 0.0-0.8 Eos # 0.17 K/uL 0.0-0.5 Baso # 0.01 K/uL Low 0.1-0.2 Laboratory test 08/28/2014 [facility] Prostate Specific 2.15 ng/mL 55 finding Antigen LDL Cholesterol 08/28/2014 [facility] Cholesterol 208 mg/dL < 200 56 Profile Triglycerides 81 mg/dL < 150 57 HDL Cholesterol 55 mg/dL > 40 58 LDL-Cholesterol 137 mg/dL < 100 59 Glycohemoglobin A1c 08/28/2014 [facility] Glycohemoglobin (A1c) 5.7 % 4.2- 6.3 60 eAG 117 mg/dL Laboratory test finding 08/28/2014 [facility] Thyroid Stim 1.42 uIU/mL 0.36-3.74 Hormone Comprehensive Metabolic 08/28/2014 [facility] Glucose 75 mg/dL 74-106 Panel BUN 18 mg/dL 7-18 Creatinine 1.0 mg/dL 0.6-1.3 Glom Filtration Rate, Estimate >60 mL/min >60 If >60 mL/min >60 61 BUN/Creat 18.0 ratio Sodium 142 mmol/L 136-145 Potassium 4.0 mmol/L 3.5-5.1 Chloride 105 mmol/L 98-107 Carbon Dioxide 28 mmol/L 21-32 Anion Gap 9 mEq/L 8-16 Calcium 8.1 mg/dL Low 8.5-10.1 Total Protein 6.9 g/dL 6.4-8.2 Albumin 4.1 g/dL 3.4-5.0 Globulin 2.8 g/dL 1.9-4.3 Alb/Glob 1.5 ratio Bilirubin,Total 0.3 mg/dL 0.2-1.0 Sgot/Ast 15 U/L 15-37 SGPT/Alt 21 U/L 12-78 Alkaline Phosphatase 78 U/L 45-117 Laboratory test 02/26/2014 [facility] Prostate Specific 1.56 ng/mL 0.00- 4.00 62 finding Antigen Glycohemoglobin A1c 02/26/2014 [facility] Glycohemoglobin 5.9 % 4.8-6.0 63 (A1c) eAG 123 mg/dL Laboratory test 02/26/2014 [facility] Thyroid Stim 1.46 uIU/mL 0.49-4.67 finding Hormone LDL Cholesterol 02/26/2014 [facility] Cholesterol 211 mg/dL High 120-200 Profile Triglycerides 93 mg/dL 16-231 HDL Cholesterol 55 mg/dL 29-83 LDL-Cholesterol 137 mg/dL 62-185 Comprehensive Metabolic Panel 02/26/2014 [facility] Glucose 80 mg/dL 76- 115 BUN 12 mg/dL 5-23 Creatinine 1.0 mg/dL 0.5-1.4 Glom Filtration Rate, Estimate >60 mL/min >60 If >60 mL/min >60 64 BUN/Creat 12.0 ratio Sodium 142 mmol/L 136-145 Potassium 3.9 mmol/L 3.5-5.1 Chloride 107 mmol/L 98-107 Carbon Dioxide 31 mEq/L High 18-29 Anion Gap 8 mEq/L 8-16 Calcium 8.4 mg/dL Low 8.5-10.1 Total Protein 7.0 g/dL 6.3-8.0 Albumin 4.2 g/dL 3.5-5.0 Globulin 2.8 g/dL 1.9-4.3 Alb/Glob 1.5 ratio Bilirubin,Total 0.5 mg/dL 0.2-1.2 Sgot/Ast 11 U/L Low 16-40 SGPT/Alt 23 U/L Low 30-65 Alkaline Phosphatase 75 U/L 50-136 CBC W/Automated Diff 02/26/2014 [facility] White Blood Count 5.0 K/uL 3.4- 10.5 Red Blood Count 4.75 M/uL 4.20-5.80 Hemoglobin 14.7 gm/dL 12.8-17.0 Hematocrit 43.5 % 38.0-48.0 Mean Cell Volume 91.6 fl 80.0-96.0 Mean Corpuscular HGB 30.9 pg 27.0-33.0 Mean Corpuscular HGB Conc 33.8 g/dL 31.7-36.0 Platelet Count 244 K/uL 150-400 Red Cell Distri Width SD 44.8 fl 36-51 Red Cell Distri Width %CV 13.6 % 11.6-15.8 Mean Platelet Volume 10.5 fL 6.6-10.6 Neut% 57.7 % 33.0-73.0 Lymph % 27.1 % 17.0-56.0 Wilcox % 11.6 % High 0.0-10.0 Eo% 3.2 % 0.0-5.0 Bas% 0.4 % 0.1-1.0 Neut# 2.87 K/uL 1.8-7.0 Lymph # 1.35 K/uL 1.2-4.0 Wilcox # 0.58 K/uL 0.0-0.6 Eos # 0.16 K/uL 0.0-0.5 Baso # 0.02 K/uL Low 0.1-0.2 Basic Metabolic Panel 09/04/2013 [facility] Glucose 88 mg/dL 76-115 BUN 14 mg/dL 5-23 Creatinine 0.9 mg/dL 0.5-1.4 Glom Filtration Rate, Estimate >60 mL/min >60 If >60 mL/min >60 65 BUN/Creat 15.5 ratio Sodium 144 mmol/L 136-145 Potassium 3.6 mmol/L 3.5-5.1 Chloride 106 mmol/L 98-107 Carbon Dioxide 30 mEq/L High 18-29 Anion Gap 12 mEq/L 8-16 Calcium 9.0 mg/dL 8.5-10.1 CBC W/Automated Diff 09/04/2013 [facility] White Blood Count 5.7 K/uL 3.4- 10.5 Red Blood Count 5.32 M/uL 4.20-5.80 Hemoglobin 15.9 gm/dL 12.8-17.0 Hematocrit 47.9 % 38.0-48.0 Mean Cell Volume 90.0 fl 80.0-96.0 Mean Corpuscular HGB 29.9 pg 27.0-33.0 Mean Corpuscular HGB Conc 33.2 g/dL 31.7-36.0 Platelet Count 239 K/uL 150-400 Red Cell Distri Width SD 44.4 fl 36-51 Red Cell Distri Width %CV 13.7 % 11.6-15.8 Mean Platelet Volume 10.5 fL 6.6-10.6 Neut% 63.9 % 33.0-73.0 Lymph % 19.5 % 17.0-56.0 Wilcox % 11.8 % High 0.0-10.0 Eo% 4.6 % 0.0-5.0 Bas% 0.2 % 0.1-1.0 Neut# 3.63 K/uL 1.8-7.0 Lymph # 1.11 K/uL Low 1.2-4.0 Wilcox # 0.67 K/uL High 0.0-0.6 Eos # 0.26 K/uL 0.0-0.5 Baso # 0.01 K/uL Low 0.1-0.2 Laboratory test finding 09/04/2013 [facility] Sedimentation Rate 4 mm/hr 0 -20 Thyroid Stim Hormone 1.30 uIU/mL 0.49-4.67 Free T4 1.05 ng/dL 0.71-1.85 Triiodothyronine,Total 115 ng/dL 71-180 66 Vitamin D,25-Hydroxy 33.3 ng/mL 30.0-100.0 67 Liver Function Tests 09/04/2013 [facility] Total Protein 7.5 g/dL 6.3-8.0 Albumin 4.5 g/dL 3.5-5.0 Globulin 3.0 g/dL 1.9-4.3 Alb/Glob 1.5 ratio Bilirubin,Total 0.4 mg/dL 0.2-1.2 Bilirubin,Direct 0.1 mg/dL 0.1-0.4 Bilirubin,Indirect 0.3 mg/dL 0.0-0.9 Sgot/Ast 13 U/L Low 16-40 SGPT/Alt 27 U/L Low 30-65 Alkaline Phosphatase 75 U/L 50-136 Basic Metabolic Panel 06/07/2013 [facility] Sodium 142 mmol/L 133- 145 Potassium 4.4 mmol/L 3.5-5.0 Chloride 104 mmol/L 101-111 Co2 Carbon Dioxide 32.0 mmol/L 22-32 Anion Gap 6.0 mmol/L 2-11 Glucose 89 mg/dL 70-100 Blood Urea Nitrogen 12 mg/dL 6-24 Creatinine 0.90 mg/dL 0.50-1.40 BUN/Creatinine Ratio 13.3 8-20 Calcium 8.9 mg/dL 8.1-9.9 Egfr Non- 81.8 >60 Egfr 105.2 >60 68 CBC Auto Diff 06/07/2013 [facility] White Blood Count 5.4 10^3/uL 4.8-10.8 Red Blood Count 5.09 10^6/uL 4.0-5.4 Hemoglobin 15.1 g/dL 14.0-18.0 Hematocrit 45 % 42-52 Mean Corpuscular Volume 89 fL 80-94 Mean Corpuscular Hemoglobin 30 pg 27-31 Mean Corpuscular HGB Conc 33 g/dL 31-36 Red Cell Distribution Width 14 % 10.5-15 Platelet Count 225 10^3/uL 150-450 Mean Platelet Volume 9 um3 7.4-10.4 Abs Neutrophils 3.3 10^3/uL 1.5-7.7 Abs Lymphocytes 1.2 10^3/uL 1.0-4.8 Abs Monocytes 0.7 10^3/uL 0-0.8 Abs Eosinophils 0.2 10^3/uL 0-0.6 Abs Basophils 0 10^3/uL 0-0.2 Abs Nucleated RBC 0 10^3/uL Granulocyte % 62.1 % 38-83 Lymphocyte % 21.6 % Low 25-47 Monocyte % 12.3 % High 1-9 Eosinophil % 3.7 % 0-6 Basophil % 0.3 % 0-2 Nucleated Red Blood Cells % 0.1 Liver Function Panel 06/07/2013 [facility] Total Protein 7.1 g/dL 6.2-8.1 Albumin 4.2 g/dL 3.2-5.2 Globulin 2.9 g/dL 2-4 Albumin/Globulin Ratio 1.4 1-3 Total Bilirubin 0.7 mg/dL 0.4-1.5 Direct Bilirubin 0.1 mg/dL 0.1-0.5 Indirect Bilirubin 0.6 mg/dL 0.3-1.0 Alkaline Phosphatase 53 U/L 30-110 Alt 18 U/L 14-54 Ast 16 U/L 12- Laboratory test 05/02/2013 [facility] TSH (Thyroid 3.76 miu/mL 0.34- 5.60 finding Stimulating Horm) Hemoglobin A1c 6.4 % High Less than 6.0 69 Cell Morphology 05/02/2013 [facility] Macrocytosis 1+ Microcytosis 1+ Schistocytes 1+ Elliptocyte 1+ Acanthrocytes 1+ Liver Function Panel 05/02/2013 [facility] Total Protein 7.8 g/dL 6.2-8.1 Albumin 4.3 g/dL 3.2-5.2 Globulin 3.5 g/dL 2-4 Albumin/Globulin Ratio 1.2 1-3 Total Bilirubin 2.7 mg/dL High 0.4-1.5 Direct Bilirubin 0.5 mg/dL 0.1-0.5 Indirect Bilirubin 2.2 mg/dL High 0.3-1.0 Alkaline Phosphatase 158 U/L High 30-110 Alt 22 U/L 14-54 Ast 27 U/L 12- Lipid Profile 05/02/2013 [facility] Triglycerides 77 mg/dL 40-200 (Trig/Chol/HDL) Cholesterol 112 mg/dL Less than 200 HDL Cholesterol 33 mg/dL Low 40-60 70 Cholesterol/HDL Ratio 3.4 Average 1-4.44 LDL Cholesterol 63.6 Less Than 100 71 Laboratory test 05/02/2013 [facility] CRP High Sensitivity 6.7 mg/L 72 finding Erythrocyte Sed Rate 22 mm/Hr 0-40 CBC Auto Diff 05/02/2013 [facility] White Blood Count 4.5 10^3/uL Low 4.8-10.8 Red Blood Count 4.49 10^6/uL 4.0-5.4 Hemoglobin 13.3 g/dL Low 14.0-18.0 Hematocrit 42 % 42-52 Mean Corpuscular Volume 93 fL 80-94 Mean Corpuscular Hemoglobin 30 pg 27-31 Mean Corpuscular HGB Conc 32 g/dL 31-36 Red Cell Distribution Width 23 % High 10.5-15 Platelet Count (SEE NOTE) 10^3/uL 150-450 73 Mean Platelet Volume (SEE NOTE) um3 7.4-10.4 74 Abs Neutrophils 3.3 10^3/uL 1.5-7.7 Abs Lymphocytes 0.6 10^3/uL Low 1.0-4.8 Abs Monocytes 0.5 10^3/uL 0-0.8 Abs Eosinophils 0.1 10^3/uL 0-0.6 Abs Basophils 0 10^3/uL 0-0.2 Abs Nucleated RBC 0.01 10^3/uL Granulocyte % 74.4 % 38-83 Lymphocyte % 13.1 % Low 25-47 Monocyte % 10.3 % High 1-9 Eosinophil % 1.6 % 0-6 Basophil % 0.6 % 0-2 Nucleated Red Blood Cells % 0.2 Basic Metabolic Panel 05/02/2013 [facility] Sodium 142 mmol/L 133- 145 Potassium 4.2 mmol/L 3.5-5.0 Chloride 99 mmol/L Low 101-111 Co2 Carbon Dioxide 34.0 mmol/L High 22-32 Anion Gap 9.0 mmol/L 2-11 Glucose 66 mg/dL Low 70-100 Blood Urea Nitrogen 38 mg/dL High 6-24 Creatinine 1.30 mg/dL 0.50-1.40 BUN/Creatinine Ratio 29.2 High 8-20 Calcium 9.7 mg/dL 8.1-9.9 Egfr Non- 53.5 >60 Egfr 68.8 >60 75 Lyme Western Blot 05/02/2013 [facility] Lyme Disease IgG Negative Negative Ab WB Lyme Disease IgG Bands Present p41, kDa Lyme Disease IgM Ab WB Negative Negative Lyme Disease IgM Bands Present No bands detecte <SEE NOTE> kDa 76 Lyme Disease Interpretation See Comment 77 Basic Metabolic Panel 08/03/2012 [facility] Sodium 141 mmol/L 133- 145 Potassium 4.2 mmol/L 3.5-5.0 Chloride 106 mmol/L 101-111 Co2 Carbon Dioxide 28.0 mmol/L 22-32 Anion Gap 7.0 mmol/L 2-11 Glucose 91 mg/dL 70-100 Blood Urea Nitrogen 16 mg/dL 6-24 Creatinine 1.00 mg/dL 0.50-1.40 BUN/Creatinine Ratio 16.0 8-20 Calcium 9.2 mg/dL 8.1-9.9 Egfr Non- 72.6 >60 Egfr 93.4 >60 78 CBC Auto Diff 08/03/2012 [facility] White Blood Count 5.6 10^3/uL 4.8-10.8 Red Blood Count 5.01 10^6/uL 4.0-5.4 Hemoglobin 14.9 g/dL 14.0-18.0 Hematocrit 45 % 42-52 Mean Corpuscular Volume 89 fL 80-94 Mean Corpuscular Hemoglobin 30 pg 27-31 Mean Corpuscular HGB Conc 33 g/dL 31-36 Red Cell Distribution Width 14 % 10.5-15 Platelet Count 198 10^3/uL 150-450 Mean Platelet Volume 9 um3 7.4-10.4 Abs Neutrophils 3.6 10^3/uL 1.5-7.7 Abs Lymphocytes 1.1 10^3/uL 1.0-4.8 Abs Monocytes 0.5 10^3/uL 0-0.8 Abs Eosinophils 0.2 10^3/uL 0-0.6 Abs Basophils 0 10^3/uL 0-0.2 Abs Nucleated RBC 0 10^3/uL Granulocyte % 65.6 % 38-83 Lymphocyte % 19.9 % Low 25-47 Monocyte % 9.5 % High 1-9 Eosinophil % 4.1 % 0-6 Basophil % 0.9 % 0-2 Nucleated Red Blood Cells % 0.1 Laboratory test 08/03/2012 [facility] CRP High Sensitivity 5.7 mg/L 79 finding Erythrocyte Sed Rate 13 mm/Hr 0-40 Lipid Profile 08/03/2012 [facility] Triglycerides 66 mg/dL 40-200 (Trig/Chol/HDL) Cholesterol 208 mg/dL High Less than 200 HDL Cholesterol 62 mg/dL High 40-60 80 Cholesterol/HDL Ratio 3.4 Average 1-4.44 LDL Cholesterol 132.8 mg/dL High Less Than 100 81 Liver Function Panel 08/03/2012 [facility] Total Protein 6.1 g/dL Low 6.2-8.1 Albumin 4.2 g/dL 3.2-5.2 Globulin 1.9 g/dL Low 2-4 Albumin/Globulin Ratio 2.2 1-3 Total Bilirubin 0.7 mg/dL 0.4-1.5 Direct Bilirubin 0.1 mg/dL 0.1-0.5 Indirect Bilirubin 0.6 mg/dL 0.3-1.0 Alkaline Phosphatase 58 U/L 30-110 Alt 22 U/L 14-54 Ast 20 U/L 12-42 Laboratory test finding 08/03/2012 [facility] PSA Screening 1.7 ng/mL 0-4.0 82 TSH (Thyroid Stimulating Horm) 1.55 miu/mL 0.34-5.60 Hemoglobin A1c 5.9 % Less than 6.0 83 CKMB 02/09/2012 [facility] CKMB In NG/ML 1.3 NG/ML 0.3-4.0 % CKMB 2 %MB 0-9 84 Laboratory test 02/09/2012 [facility] CPK (Creatine 60 U/L 0-200 finding Kinase) Urinalysis 02/09/2012 [facility] Ua Color YELLOW Yellow Appearance-Urine CLEAR Clear Specific [place]-Ur 1.008 Low 1.010-1.030 Esterase-Urine NEGATIVE Negative Nitrite NEGATIVE Negative [id number] NEGATIVE Negative Protein-Urine NEGATIVE Negative PH-Urine 7.5 5-9 Blood-Urine NEGATIVE Negative Ketones-Urine NEGATIVE Negative Bilirubin-Ur NEGATIVE Negative Glucose-Urine NEGATIVE Negative Laboratory test 02/09/2012 [facility] Troponin-I 0 NG/ML 0-0.06 85 finding Code Wilkins CBC Auto 02/09/2012 [facility] White Blood Count 6.2 CUMM 4.8-10.8 Diff Red Cell Count 4.66 CUMM 4.6-6.2 Hemoglobin 14.4 g/dL 14.0-18.0 Hematocrit 41 % Low 42-52 Mean Corpuscular Volume 88 um3 80-94 Mean Corpuscular Hemoglob 31 pg 27-31 Mean Corpuscular HGB Cone 35 g/dL 32-36 Redcell Distribution WDTH 15 % 10.5-15 Platelet Count 229 CUMM 150-450 Mean Platelet Volume 7.7 um3 7.4-10.4 Gran % 62.6 % 38-83 Lymph % 25.1 % 20-45 Mononuclear % 9.7 % High 1-9 Eosinophil % 2.2 % 0-6 Basophil % 0.4 % 0-2 Abs Lymphs 1.6 1.0-4.8 Abs Mononuclear 0.6 0-0.8 Absolute Neutrophil Count 3.9 1.5-7.7 Abs Eosinophils 0.1 0-0.6 Abs Basophils 0 0-0.2 Code Franky Protime/Inr 02/09/2012 [facility] Protime 11.6 SEC 10.3- 13.5 Inr 0.98 0.88-1.13 86 Laboratory test 02/09/2012 [place] Code Franky PTT 29.4 SEC 25.15- 38.53 finding (Aptt) Code Franky Comp Met 02/09/2012 [facility] Sodium 139 mmol/L 135-145 Panel Potassium 4.0 mmol/L 3.5-5.0 Chloride 108 mmol/L 101-111 Co2 (Carbon Dioxide) 25.0 mmol/L 22-32 Anion Gap 6.0 mmol/L 2-11 87 Glucose 107 mg/dL High 70-100 BUN 13 mg/dL 6-24 Creatinine 1.0 mg/dL 0.50-1.40 One Over Creatinine 1.00 BUN/Creatinine Ratio 13.0 8-20 Calcium 8.8 mg/dL 8.1-9.9 Total Protein 6.9 GM/DL 6.2-8.1 Albumin 4.0 GM/DL 3.2-5.2 Globulin 2.9 GM/DL 2-4 Albumin/Globulin Ratio 1.4 1-3 Bilirubin Total 0.5 mg/dL 0.4-1.5 88 Alkaline Phosphatase 68 U/L 39-117 Alt (SGPT) 16 U/L Low 17-63 Ast (Sgot) 19 U/L 12-42 eGFR Non- 72.6 > 60 eGFR 93.4 > 60 89 1 A REVIEW OF THE LITERATURE SUGGESTS THE FOLLOWING RANGES FOR THE CLASSIFICATION OF 25-OH VITAMIN D STATUS: VITAMIN D STATUS 25-OH VITAMIN D DEFICIENCY <20 NG/ML INSUFFICIENCY 20-30 NG/ML SUFFICIENCY 31 - 100 NG/ML TOXICITY > 100 NG/ML A PEDIATRIC REFERENCE RANGE HAS NOT BEEN ESTABLISHED USING THIS METHOD. 2 Performed using Siemens [place] immunoassay. Care must be taken when interpreting HbA1c results in patients with a hemoglobin variant or decreased erythrocyte lifespan. Values 5.7 - 6.4% suggest prediabetes. Values >=6.5% are diagnostic for diabetes. REFERENCE: DIABETES CARE 2018: 41(S13-S27). 3 NORMAL KIDNEY FUNCTION OR MILD DISEASE - GFR >OR=60 CHRONIC KIDNEY DISEASE - GFR 15 - 59 RENAL FAILURE - GFR <15 Est. GFR calculation based on the MDRD study equation, which assumes a steady state for creatinine. Est. GFR should not be used for medication dosing. 4 PER NCEP ATP III GUIDELINES: RESULTS LOWER THAN 40 MG/DL ARE SUGGESTIVE OF INCREASED RISK FOR CORONARY ARTERY DISEASE. RESULTS > OR=TO 60 MG/DL ARE CONSIDERED A NEGATIVE RISK FACTOR. 5 INTERPRETATION OF CHOL-HDL RATIO CHD RISK FEMALE MALE VERY HIGH >8.3 >14.3 HIGH 5.6- 8.3 6.7- 14.3 AVERAGE 3.7- 5.6 4.0- 6.7 BELOW AVERAGE 2.5- 3.7 2.7- 4.0 PROTECTED <2.5 <2.7 6 PER NCEP ATP III GUIDELINES: OPTIMAL < 100 NEAR OPTIMAL 100 - 129 BORDERLINE HIGH 130 - 159 HIGH 160 - 189 VERY HIGH > 189 7 Manager Ethics: [id number] Desirable: <150 Borderline High: 150-199 High: 200-499 Very High: >500 9 Desirable: <200 Borderline High: 200-239 High: >239 10 Low: <40 Desirable: 40-60 High: >60 11 Desirable: <100 Near Optimal: 100-129 Borderline High: 130-159 High: 160-189 Very High: >189 12 Acute inflammation: >10.00 13 Normal Range 180 to 914 Indeterminate Range 145 to 180 Deficient Range <145 14 REFERENCE VALUE <=13 (Fasting) ADDITIONAL INFORMATION This test was developed and its performance characteristics determined by [facility] in a manner consistent with CLIA requirements. This test has not been cleared or approved by the U.S. Food and Drug Administration. Test Performed by: [facility] - [address] [id number] 15 [id number] Normal Range 180 to 914 Indeterminate Range 145 to 180 Deficient Range <145 17 [id number] 20 Because ethnic data is not always readily available, this report includes an eGFR for both -Americans and non- Americans. The National Kidney Disease Education Program (NKDEP) does not endorse the use of the MDRD equation for patients that are not between the ages of 18 and 70, are , have extremes of body size, muscle mass, or nutritional status, or are non- or non-. According to the National Kidney Foundation, irrespective of diagnosis, the stage of the disease is based on the level of kidney function: Stage Description GFR(mL/min/1.73 m(2)) 1 Kidney damage with normal or decreased GFR 90 2 Kidney damage with mild decrease in GFR 60-89 3 Moderate decrease in GFR 30-59 4 Severe decrease in GFR 15-29 5 Kidney failure <15 (or dialysis) 21 Desirable: <150 Borderline High: 150-199 High: 200-499 Very High: >500 22 Desirable: <200 Borderline High: 200-239 High: >239 23 Low: <40 Desirable: 40-60 High: >60 24 Desirable: <100 Near Optimal: 100-129 Borderline High: 130-159 High: 160-189 Very High: >189 25 Ratio not calculated because clinical usefulness is not defined except in range of total PSA 4.0-10.0 ng/mL. ADDITIONAL INFORMATION The testing method is an electrochemiluminescence assay manufactured by [employer] and performed on the Modular or Celestina system. Values obtained with different assay methods or kits may be different and cannot be used interchangeably. Test results cannot be interpreted as absolute evidence for the presence or absence of malignant disease. Test Performed by: [facility] - [facility] [address] [place] [address] 26 Therapeutic target for the treatment of diabetes mellitus patients is <7% HBA1C, and in selective patients <6.0%. Please refer to [employer] [place] [employer] diabetic care guidelines for further information. 27 Because ethnic data is not always readily available, this report includes an eGFR for both -Americans and non- Americans. The National Kidney Disease Education Program (NKDEP) does not endorse the use of the MDRD equation for patients that are not between the ages of 18 and 70, are , have extremes of body size, muscle mass, or nutritional status, or are non- or non-. According to the National Kidney Foundation, irrespective of diagnosis, the stage of the disease is based on the level of kidney function: Stage Description GFR(mL/min/1.73 m(2)) 1 Kidney damage with normal or decreased GFR 90 2 Kidney damage with mild decrease in GFR 60-89 3 Moderate decrease in GFR 30-59 4 Severe decrease in GFR 15-29 5 Kidney failure <15 (or dialysis) 28 Desirable <150 Borderline high 150-199 High 200-499 Very High >500 29 Desirable <200 Borderline high 200-239 High >239 30 Low <40 Desirable: 40-60 High: >60 31 Desirable: <100 mg/dL Near Optimal: 100-129 mg/dL Borderline High: 130-159 mg/dL High: 160-189 mg/dL Very High: >189 mg/dL 32 Serum levels of PSA measured using the [employer] [place] DXI Hybritech immunoassay should not be interpreted as absolute evidence of the presence or absence of disease. The PSA value should be used in conjunction with other pertinent clinical diagnostic procedures. The values obtained with different assay methods or kits cannot be used interchangeably. 33 Therapeutic target for the treatment of diabetes Mellitus patients is <7% HBA1C, and in selective patients <6.0%.Please refer to [employer] [place] [employer] Diabetic care guidelines for further information. 34 [id number] NORMAL KIDNEY FUNCTION OR MILD DISEASE - GFR >OR=60 CHRONIC KIDNEY DISEASE - GFR 15 - 59 RENAL FAILURE - GFR <15 Est. GFR calculation based on the MDRD study equation, which assumes a steady state for creatinine. Est. GFR should not be used for medication dosing. 36 PER NCEP ATP III GUIDELINES: RESULTS LOWER THAN 40 MG/DL ARE SUGGESTIVE OF INCREASED RISK FOR CORONARY ARTERY DISEASE. RESULTS > OR=TO 60 MG/DL ARE CONSIDERED A NEGATIVE RISK FACTOR. 37 INTERPRETATION OF CHOL-HDL RATIO CHD RISK FEMALE MALE VERY HIGH >8.3 >14.3 HIGH 5.6- 8.3 6.7- 14.3 AVERAGE 3.7- 5.6 4.0- 6.7 BELOW AVERAGE 2.5- 3.7 2.7- 4.0 PROTECTED <2.5 <2.7 38 PER NCEP ATP III GUIDELINES: OPTIMAL < 100 NEAR OPTIMAL 100 - 129 BORDERLINE HIGH 130 - 159 HIGH 160 - 189 VERY HIGH > 189 39 HEMOGLOBIN A1c INTERPRETATION: 4.0-6.0% GOOD GLYCEMIC CONTROL 6.1-6.5% AT RISK FOR HYPERGLYCEMIA >6.5% DIABETIC/ POOR GLYCEMIC CONTROL REFERENCE: DIABETES CARE 32(7), 2009 IF A1c RESULT IS INCONSISTENT WITH CLINICAL ESTIMATES OF GLYCEMIC CONTROL, AN INTERFERING Hb VARIANT SHOULD BE CONSIDERED. 40 IN 20% OF CASES W/ BPH, PSA MAY BE 10 NG/ML OR MORE. SERUM PSA CONCENTRATION SHOULD NOT BE INTERPRETED ABSOLUTE EVIDENCE FOR THE PRESENCE OR ABSENCE OF MALIGNANT DISEASE. METHOD IS SHERRY ACCESS/DXI EQUIMOLAR ASSAY. VALUES OBTAINED WITH DIFFERENT ASSAY METHODS OR KITS CANNOT BE USED INTERCHANGEABLY. 41 Because ethnic data is not always readily available, this report includes an eGFR for both -Americans and non- Americans. The National Kidney Disease Education Program (NKDEP) does not endorse the use of the MDRD equation for patients that are not between the ages of 18 and 70, are , have extremes of body size, muscle mass, or nutritional status, or are non- or non-. According to the National Kidney Foundation, irrespective of diagnosis, the stage of the disease is based on the level of kidney function: Stage Description GFR(mL/min/1.73 m(2)) 1 Kidney damage with normal or decreased GFR 90 2 Kidney damage with mild decrease in GFR 60-89 3 Moderate decrease in GFR 30-59 4 Severe decrease in GFR 15-29 5 Kidney failure <15 (or dialysis) 42 Desirable <150 Borderline high 150-199 High 200-499 Very High >500 43 Desirable <200 Borderline high 200-239 High >239 44 Low <40 Desirable: 40-60 High: >60 45 Desirable: <100 mg/dL Near Optimal: 100-129 mg/dL Borderline High: 130-159 mg/dL High: 160-189 mg/dL Very High: >189 mg/dL 46 Therapeutic target for the treatment of diabetes Mellitus patients is <7% HBA1C, and in selective patients <6.0%.Please refer to [employer] [place] [employer] Diabetic care guidelines for further information. 47 Note: Persistent reduction for 3 months or more in an eGFR <60 mL/min/1.73 m2 defines CKD. Patients with eGFR values >/=60 mL/min/1.73 m2 may also have CKD if evidence of persistent proteinuria is present. The original MDRD equation for estimated GFR is not valid for patients less than 18 years of age. Additional information may be found at www.kdo[facility].org. 48 Values below the stated reference ranges of AST and ALT can be seen in normal populations. Clinical correlation is suggested. 49 Elevated levels of HbA1c suggest the need for more aggressive treatment of glycemia. The [place] [employer] recommends that a primary goal of therapy should be a HbA1c of <7% and that physicians should re-evaluate the treatment regimen in patients with HbA1c values consistently >8%. 50 Reference Guidelines*: Desirable: ........... < 200 mg/dL Borderline High: ..... 200-239 mg/dL High: ................ >=240 mg/dL * The National Cholesterol Education Program (NCEP) 51 Reference Guidelines*: Normal: ............. < 150 mg/dL Borderline High: .... 150-199 mg/dL High: ............... 200-499 mg/dL Very High: .......... > 500 mg/dL * Source: National Cholesterol Education Program (NCEP) 52 Reference Guidelines*: Low HDL: ..... < 40 mg/dL Normal: ..... 40-60 mg/dL Desirable: ... > 60 mg/dL *The National Cholesterol Education Program(NCEP) 53 Reference Guidelines*: Optimal:........... <100 mg/dL Near Optimal....... 100-129 mg/dL Borderline High.... 130-159 mg/dL High............... 160-189 mg/dL Very High.......... >=190 mg/dL * Source: National Cholesterol Education Program (NCEP) 54 Vitamin D deficiency has been defined by the [place] [employer] and an Endocrine Society practice guideline as a level of serum 25-OH vitamin D less than 20 ng/mL (1,2). The Endocrine Society went on to further define vitamin D insufficiency as a level between 21 and 29 ng/mL (2). 1. IOM ([place] [employer]). 2010. Dietary reference intakes for calcium and D. [place]: The National Academies Press. 2. Teri MF, Chayito NC, Genevieve LO, et al. Evaluation, treatment, and prevention of vitamin D deficiency: an Endocrine Society clinical practice guideline. JCEM. 2010; 96(7):1911-30. Performed at: [place] - [facility] [address] [id number] Membership Sales Manager: Laurie Knapp MD, Phone: [phone] 55 THIS ASSAY IS NOT INTENDED A CANCER SCREENING TEST The concentration of PSA in a given specimen, determined with assays from different manufacturers, can vary due to differences in assay methods and reagent specificity. Values obtained from different assay methods cannot be used interchangeably. 56 Reference Guidelines*: Desirable: ........... < 200 mg/dL Borderline High: ..... 200-239 mg/dL High: ................ >=240 mg/dL * The National Cholesterol Education Program (NCEP) 57 Reference Guidelines*: Normal: ............. < 150 mg/dL Borderline High: .... 150-199 mg/dL High: ............... 200-499 mg/dL Very High: .......... > 500 mg/dL * Source: National Cholesterol Education Program (NCEP) 58 Reference Guidelines*: Low HDL: ..... < 40 mg/dL Normal: ..... 40-60 mg/dL Desirable: ... > 60 mg/dL *The National Cholesterol Education Program(NCEP) 59 Reference Guidelines*: Optimal:........... <100 mg/dL Near Optimal....... 100-129 mg/dL Borderline High.... 130-159 mg/dL High............... 160-189 mg/dL Very High.......... >=190 mg/dL * Source: National Cholesterol Education Program (NCEP) 60 Elevated levels of HbA1c suggest the need for more aggressive treatment of glycemia. The [place] [employer] recommends that a primary goal of therapy should be a HbA1c of <7% and that physicians should re-evaluate the treatment regimen in patients with HbA1c values consistently >8%. 61 Note: Persistent reduction for 3 months or more in an eGFR <60 mL/min/1.73 m2 defines CKD. Patients with eGFR values >/=60 mL/min/1.73 m2 may also have CKD if evidence of persistent proteinuria is present. The original MDRD equation for estimated GFR is not valid for patients less than 18 years of age. Additional information may be found at www.kdoqi.org. 62 THIS ASSAY IS NOT INTENDED A CANCER SCREENING TEST The concentration of PSA in a given specimen, determined with assays from different manufacturers, can vary due to differences in assay methods and reagent specificity. Values obtained from different assay methods cannot be used interchangeably. 63 A1c value between 5.7% and 6.4% is considered at increased risk for diabetes. A1c value greater than 6.5 % is considered essentially diagnostic for Type II diabetes. Current guidelines recommend a treatment goal of <7% for diabetic patients. This method will measure glycosylated hemoglobin variants, HbS, HbG, HbH, HbWayne, HbC, HbE, etc. Other hemoglobin- opathies may give incorrect results with this test. 64 Note: Persistent reduction for 3 months or more in an eGFR <60 mL/min/1.73 m2 defines CKD. Patients with eGFR values >/=60 mL/min/1.73 m2 may also have CKD if evidence of persistent proteinuria is present. The original MDRD equation for estimated GFR is not valid for patients less than 18 years of age. Additional information may be found at www.kdoqi.org. 65 Note: Persistent reduction for 3 months or more in an eGFR <60 mL/min/1.73 m2 defines CKD. Patients with eGFR values >/=60 mL/min/1.73 m2 may also have CKD if evidence of persistent proteinuria is present. The original MDRD equation for estimated GFR is not valid for patients less than 18 years of age. Additional information may be found at www.[email or web address]. 66 Performed at: [facility] [facility] [address] [id number] Membership Sales Manager: Laurie Knapp MD, Phone: [phone] 67 Vitamin D deficiency has been defined by the [place] [employer] and an Endocrine Society practice guideline as a level of serum 25-OH vitamin D less than 20 ng/mL (1,2). The Endocrine Society went on to further define vitamin D insufficiency as a level between 21 and 29 ng/mL (2). 1. IOM ([place] [employer]). 2010. Dietary reference intakes for calcium and D. [place]: The National Academies Press. 2. Teri MF, Chayito NC, Genevieve LO, et al. Evaluation, treatment, and prevention of vitamin D deficiency: an Endocrine Society clinical practice guideline. JCEM. 2010; 96(7):1911-30. Performed at: [place] [facility] [address] [id number] Membership Sales Manager: Laurie Knapp MD, Phone: [phone] 68 Because ethnic data is not always readily available, this report includes an eGFR for both -Americans and non- Americans. The National Kidney Disease Education Program (NKDEP) does not endorse the use of the MDRD equation for patients that are not between the ages of 18 and 70, are , have extremes of body size, muscle mass, or nutritional status, or are non- or non-. According to the National Kidney Foundation, irrespective of diagnosis, the stage of the disease is based on the level of kidney function: Stage Description GFR(mL/min/1.73 m(2)) 1 Kidney damage with normal or decreased GFR 90 2 Kidney damage with mild decrease in GFR 60-89 3 Moderate decrease in GFR 30-59 4 Severe decrease in GFR 15-29 5 Kidney failure <15 (or dialysis) 69 Therapeutic target for the treatment of diabetes Mellitus patients is <7% HBA1C, and in selective patients <6.0%.Please refer to [place] [employer] Diabetic care guidelines for further information. 70 HDL Interpretation: Undesirable: High Risk: Less than 40 mg/dL Desirable: Low Risk: Greater than 60 mg/dL 71 LDL Interpretation: Low Risk Optimal Level: LDL Less than 100 mg/dL Near or Above Optimal: LDL 100-129 mg/dL Borderline High Risk: LDL 130-159 mg/dL High Risk: LDL 160-189 mg/dL Very High Risk: LDL Greater than 189 mg/dL 72 Less Than 1.0......Low Risk of Cardiovascular Disease 1.0-3.0............Medium Risk (<2 Fold Increase) Greater Than 3.0...High Risk (Approximately 2-Fold Increase) 73 Platelets clumped. Unable to perform accurate count. 74 Platelets clumped. Unable to perform accurate count. 75 Because ethnic data is not always readily available, this report includes an eGFR for both -Americans and non- Americans. The National Kidney Disease Education Program (NKDEP) does not endorse the use of the MDRD equation for patients that are not between the ages of 18 and 70, are , have extremes of body size, muscle mass, or nutritional status, or are non- or non-. According to the National Kidney Foundation, irrespective of diagnosis, the stage of the disease is based on the level of kidney function: Stage Description GFR(mL/min/1.73 m(2)) 1 Kidney damage with normal or decreased GFR 90 2 Kidney damage with mild decrease in GFR 60-89 3 Moderate decrease in GFR 30-59 4 Severe decrease in GFR 15-29 5 Kidney failure <15 (or dialysis) 76 No bands detected 77 Specific serologic response to B. burgdorferi infection is not detected, but cannot rule out early infection during which low or undetectable antibody levels to B. burgdorferi may be present. If clinically indicated, a new serum specimen should be submitted in 7-14 days. CDC criteria require >=5 bands for IgG or >=2 bands for IgM for the Immunoblot to be considered positive. Bands (e.g.,p41) may be detected in patients without Lyme disease, and patterns not meeting the CDC criteria should be interpreted with caution. Immunoblot should be ordered only on specimens that are positive or equivocal by a FDA-licensed Lyme disease antibody screening test (e.g., EIA). Test Performed by: [place] [address] Home Care Nurse: Ming Akhtar III, M.D. 78 Because ethnic data is not always readily available, this report includes an eGFR for both -Americans and non- Americans. The National Kidney Disease Education Program (NKDEP) does not endorse the use of the MDRD equation for patients that are not between the ages of 18 and 70, are , have extremes of body size, muscle mass, or nutritional status, or are non- or non-. According to the National Kidney Foundation, irrespective of diagnosis, the stage of the disease is based on the level of kidney function: Stage Description GFR(mL/min/1.73 m(2)) 1 Kidney damage with normal or decreased GFR 90 2 Kidney damage with mild decrease in GFR 60-89 3 Moderate decrease in GFR 30-59 4 Severe decrease in GFR 15-29 5 Kidney failure <15 (or dialysis) 79 Less Than 1.0......Low Risk of Cardiovascular Disease 1.0-3.0............Medium Risk (<2 Fold Increase) Greater Than 3.0...High Risk (Approximately 2-Fold Increase) 80 HDL Interpretation: Undesirable: High Risk: Less than 40 MG/DL Desirable: Low Risk: Greater than 60 MG/DL 81 LDL Interpretation: Low Risk Optimal Level: LDL Less than 100 MG/DL Near or Above Optimal: LDL 100-129 MG/DL Borderline High Risk: LDL 130-159 MG/DL High Risk: LDL 160-189 MG/DL Very High Risk: LDL Greater than 189 MG/DL 82 Serum levels of PSA measured using the Sherry Kindful DXI Hybritech immunoassay should not be interpreted as absolute evidence of the presence or absence of disease. The PSA value should be used in conjunction with other pertinent clinical diagnostic procedures. The values obtained with different assay methods or kits cannot be used interchangeably. 83 Therapeutic target for the treatment of diabetes Mellitus patients is <7% HBA1C, and in selective patients <6.0%.Please refer to [place] [employer] Diabetic care guidelines for further information. 84 INTERPRETATION %CK-MB < 5% NOT SUPPORTIVE OF DIAGNOSIS OF VT 5 - <10% INDETERMINATE; SUGGEST SERIAL STUDIES IF CLINICALLY INDICATED 10% OR > CONSISTENT WITH DIAGNOSIS OF VT . 85 New Reference Range and Interpretation effective 03/16/2002 TnI (ng/ml) INTERPRETATION Less Than 0.06 ng/mL NOT SUPPORTIVE OF DIAGNOSIS OF VT 0.06 - 0.50 ng/ml INDETERMINATE: SUGGEST SERIAL STUDIES IF CLINICALLY INDICATED. Greater than 0.5 ng/mL CONSISTENT WITH DIAGNOSIS OF VT . 86 Recommended INR for Patients on Oral Anticoagulants Prophylaxis 2.0 - 3.0 Treatment of thrombosis 2.0 - 3.0 Prevention of embolism 2.0 - 3.0 Prevention of embolism from prosthetic heart valves 2.5 - 3.5 87 Anion gap measurement may be of limited value in the presence of any alkalosis, especially in a combined acid base disorder. . 88 A metabolite of Naproxen, O-desmethylnaproxen, has been shown to interfere with the [place] method for measuring total bilirubin. Samples from patients who have taken Naproxen have shown spurious elevation in total bilirubin levels. 89 Because ethnic data is not always readily available, this report includes an eGFR for both -Americans and non- Americans. The National Kidney Disease Education Program (NKDEP) does not endorse the use of the MDRD equation for patients that are not between the ages of 18 and 70, are , have extremes of body size, muscle mass, or nutritional status, or are non- or non-. According to the National Kidney Foundation, irrespective of diagnosis, the stage of the disease is based on the level of kidney function: Stage Description GFR(mL/min/1.73 m(2)) 1 Kidney damage with normal or decreased GFR 90 2 Kidney damage with mild decrease in GFR 60-89 3 Moderate decrease in GFR 30-59 4 Severe decrease in GFR 15-29 5 Kidney failure <15 (or dialysis) Procedures Date Code Description Status 06/30/2018 59261 Spirometry Completed 06/30/2018 73339 Tympanometry Completed 06/22/2018 75606 EKG Completed 07/26/2017 37677 Injection DX/Therapeutic/Prophy Completed 01/11/2017 50493 EKG Completed 06/09/2015 81611 Spirometry Completed 05/19/2015 97553 Ear Irrigation Completed 03/25/2015 00844 Visual Screening Test Completed 03/25/2015 40434 EKG Completed 03/25/2015 28393 Audiometry, Bek[place], Screening Completed 09/27/2014 58457 Spirometry Completed 09/27/2014 48038 Tympanometry Completed 02/26/2014 95145 Audiometry, Bekesy, Screening Completed 02/26/2014 26787 EKG Completed 02/26/2014 32250 Visual Screening Test Completed 10/30/2012 61203 EKG Completed 10/28/2011 77343 EKG Completed 05/31/2011 45182 EKG Completed 08/13/2010 51641 EKG Completed 05/07/2008 75672 Tympanometry Completed 10/23/2007 37509 EKG Completed 01/07/2006 09074 EKG Completed 11/04/2004 72136 I & D Abscess Complicated/Multiple Furuncle/Carbuncle/Cyst Completed 07/02/2004 38153 Tympanometry Completed 01/02/2004 97971 Ear Irrigation Completed 10/22/2003 63587 Nail Avulsion Partial Or Complete,Simple Single Completed Encounters Type Date Location Provider Dx Diagnosis Office Visit 10/26/2018 [facility] Laura Aparicio, R11.2 Nausea with 4:15p M.D. vomiting, unspecified R42 Dizziness and giddiness R51 Headache I10 Essential (primary) hypertension E78.2 Mixed hyperlipidemia M15.9 Polyosteoarthritis, unspecified N40.1 Benign prostatic hyperplasia with lower urinary tract symp R73.09 Other abnormal glucose M54.5 Low back pain H90.3 Sensorineural hearing loss, bilateral E53.9 Vitamin B deficiency, unspecified H40.9 Unspecified glaucoma H81.13 Benign paroxysmal vertigo, bilateral E55.9 Vitamin D deficiency, unspecified F03.90 Unspecified dementia without behavioral disturbance L20.9 Atopic dermatitis, unspecified J30.9 Allergic rhinitis, unspecified Office Visit 06/30/2018 9:00a [facility] Hardik Herrera, I10 Essential (primary) N.P. hypertension E78.2 Mixed hyperlipidemia M15.9 Polyosteoarthritis, unspecified N40.1 Benign prostatic hyperplasia with lower urinary tract symp R73.09 Other abnormal glucose M54.5 Low back pain H90.3 Sensorineural hearing loss, bilateral E53.9 Vitamin B deficiency, unspecified H40.9 Unspecified glaucoma H81.13 Benign paroxysmal vertigo, bilateral E55.9 Vitamin D deficiency, unspecified F03.90 Unspecified dementia without behavioral disturbance L20.9 Atopic dermatitis, unspecified J30.9 Allergic rhinitis, unspecified R05 Cough J20.9 Acute bronchitis, unspecified H92.03 Otalgia, bilateral J18.0 Bronchopneumonia, unspecified organism Office Visit 06/22/2018 10:30a [facility] Laura Aparicio I10 Essential ( primary) Peyman Willis hypertension E78.2 Mixed hyperlipidemia M15.9 Polyosteoarthritis, unspecified N40.1 Benign prostatic hyperplasia with lower urinary tract symp R73.09 Other abnormal glucose M54.5 Low back pain H90.3 Sensorineural hearing loss, bilateral E53.9 Vitamin B deficiency, unspecified H40.9 Unspecified glaucoma H81.13 Benign paroxysmal vertigo, bilateral E55.9 Vitamin D deficiency, unspecified F03.90 Unspecified dementia without behavioral disturbance L20.9 Atopic dermatitis, unspecified J30.9 Allergic rhinitis, unspecified Z00.01 Encounter for general adult medical exam w abnormal findings Office Visit 01/03/2018 4:15p [facility] Laura Aparicio I10 Essential ( primary) Peyman Willis hypertension E78.2 Mixed hyperlipidemia M15.9 Polyosteoarthritis, unspecified N40.1 Benign prostatic hyperplasia with lower urinary tract symp R73.09 Other abnormal glucose M54.5 Low back pain H90.3 Sensorineural hearing loss, bilateral E53.9 Vitamin B deficiency, unspecified H40.9 Unspecified glaucoma H81.13 Benign paroxysmal vertigo, bilateral E55.9 Vitamin D deficiency, unspecified F03.90 Unspecified dementia without behavioral disturbance L20.9 Atopic dermatitis, unspecified J30.9 Allergic rhinitis, unspecified Office Visit 08/22/2017 8:45a [facility] Markus Zhangraya I10 Essential ( primary) Peyman Willis hypertension E78.2 Mixed hyperlipidemia M15.9 Polyosteoarthritis, unspecified N40.1 Benign prostatic hyperplasia with lower urinary tract symp R73.09 Other abnormal glucose M54.5 Low back pain H90.3 Sensorineural hearing loss, bilateral E53.9 Vitamin B deficiency, unspecified H40.9 Unspecified glaucoma H81.13 Benign paroxysmal vertigo, bilateral E55.9 Vitamin D deficiency, unspecified F03.90 Unspecified dementia without behavioral disturbance L20.9 Atopic dermatitis, unspecified J30.9 Allergic rhinitis, unspecified Office Visit 07/26/2017 11:45a [facility] Markus Vickibailey I10 Essential ( primary) Peyman Willis hypertension E78.2 Mixed hyperlipidemia M15.9 Polyosteoarthritis, unspecified N40.1 Benign prostatic hyperplasia with lower urinary tract symp R73.09 Other abnormal glucose M54.5 Low back pain H90.3 Sensorineural hearing loss, bilateral E53.9 Vitamin B deficiency, unspecified H40.9 Unspecified glaucoma H81.13 Benign paroxysmal vertigo, bilateral E55.9 Vitamin D deficiency, unspecified F03.90 Unspecified dementia without behavioral disturbance L20.9 Atopic dermatitis, unspecified J30.9 Allergic rhinitis, unspecified Office Visit 07/04/2017 9:30a [facility] John, I10 Essential ( primary) ALEJANDRO Khan hypertension E78.2 Mixed hyperlipidemia M15.9 Polyosteoarthritis, unspecified N40.1 Benign prostatic hyperplasia with lower urinary tract symp R73.09 Other abnormal glucose M54.5 Low back pain H90.3 Sensorineural hearing loss, bilateral H40.9 Unspecified glaucoma H81.13 Benign paroxysmal vertigo, bilateral Office Visit 01/11/2017 8:30a [facility] Osei Ybarra Z00.01 Encounter for [facility] general adult medical exam w abnormal findings I10 Essential (primary) hypertension E78.2 Mixed hyperlipidemia M15.9 Polyosteoarthritis, unspecified N40.1 Benign prostatic hyperplasia with lower urinary tract symp R73.09 Other abnormal glucose Z12.12 Encounter for screening for malignant neoplasm of rectum Z12.5 Encounter for screening for malignant neoplasm of prostate Office Visit 03/24/2016 8:45a [facility] Osei Ybarra I10 Essential ( primary) CORRECTIONS CADET hypertension E78.2 Mixed hyperlipidemia M15.9 Polyosteoarthritis, unspecified M54.5 Low back pain H90.3 Sensorineural hearing loss, bilateral R53.81 Other malaise H40.9 Unspecified glaucoma N40.1 Benign prostatic hyperplasia with lower urinary tract symp H81.13 Benign paroxysmal vertigo, bilateral Office Visit 11/13/2015 1:45p [facility] Laura Aparicio0 Essential ( primary) Peyman Willis hypertension E78.2 Mixed hyperlipidemia M15.9 Polyosteoarthritis, unspecified M54.5 Low back pain H90.3 Sensorineural hearing loss, bilateral R53.81 Other malaise H40.9 Unspecified glaucoma N40.1 Enlarged prostate with lower urinary tract symptoms H26.9 Unspecified cataract H81.13 Benign paroxysmal vertigo, bilateral R73.01 Impaired fasting glucose Office Visit 09/26/2015 9:30a [facility] Laura Aparicio I10 Essential ( primary) Peyman Willis hypertension E78.2 Mixed hyperlipidemia M15.9 Polyosteoarthritis, unspecified M54.5 Low back pain H90.3 Sensorineural hearing loss, bilateral R53.81 Other malaise H40.9 Unspecified glaucoma N40.1 Enlarged prostate with lower urinary tract symptoms H26.9 Unspecified cataract H81.13 Benign paroxysmal vertigo, bilateral R73.01 Impaired fasting glucose Office Visit 08/15/2015 8:30a [facility] Laura Aparicio I1Stephane Essential ( primary) Peyman Willis hypertension E78.2 Mixed hyperlipidemia M15.9 Polyosteoarthritis, unspecified M54.5 Low back pain H90.3 Sensorineural hearing loss, bilateral R53.81 Other malaise H40.9 Unspecified glaucoma N40.1 Enlarged prostate with lower urinary tract symptoms H26.9 Unspecified cataract H81.13 Benign paroxysmal vertigo, bilateral R73.01 Impaired fasting glucose Office Visit 07/18/2015 4:00p [facility] Laura Aparicio I10 Essential ( primary) Debby Willis. hypertension E78.2 Mixed hyperlipidemia M15.9 Polyosteoarthritis, unspecified M54.5 Low back pain R79.9 Abnormal finding of blood chemistry, unspecified H90.3 Sensorineural hearing loss, bilateral R11.2 Nausea with vomiting, unspecified R53.81 Other malaise H40.9 Unspecified glaucoma N40.1 Enlarged prostate with lower urinary tract symptoms H26.9 Unspecified cataract H81.13 Benign paroxysmal vertigo, bilateral Office Visit 06/19/2015 2:30p [facility] Laura Aparicio J20.9 Acute bronchitisLazaro M.D. unspecified J01.40 Acute pansinusitis, unspecified R05 Cough R06.02 Shortness of breath R09.81 Nasal congestion I10 Essential (primary) hypertension E78.2 Mixed hyperlipidemia M15.9 Polyosteoarthritis, unspecified M54.5 Low back pain R79.9 Abnormal finding of blood chemistry, unspecified H90.3 Sensorineural hearing loss, bilateral R11.2 Nausea with vomiting, unspecified R53.81 Other malaise H40.9 Unspecified glaucoma N40.1 Enlarged prostate with lower urinary tract symptoms H26.9 Unspecified cataract H81.13 Benign paroxysmal vertigo, bilateral Office Visit 06/09/2015 10:30a [facility] Laura Aparicio J20.9 Acute bronchitisLazaro M.D. unspecified J01.40 Acute pansinusitis, unspecified R05 Cough R06.02 Shortness of breath R09.81 Nasal congestion I10 Essential (primary) hypertension E78.2 Mixed hyperlipidemia M15.9 Polyosteoarthritis, unspecified M54.5 Low back pain R79.9 Abnormal finding of blood chemistry, unspecified H90.3 Sensorineural hearing loss, bilateral R53.81 Other malaise H40.9 Unspecified glaucoma N40.1 Enlarged prostate with lower urinary tract symptoms H26.9 Unspecified cataract Office Visit 05/19/2015 1:45p [facility] Laura Aparicio I10 Essential ( primary) Peyman Willis hypertension E78.2 Mixed hyperlipidemia M15.9 Polyosteoarthritis, unspecified M54.5 Low back pain R79.9 Abnormal finding of blood chemistry, unspecified H90.3 Sensorineural hearing loss, bilateral R53.81 Other malaise H40.9 Unspecified glaucoma N40.1 Enlarged prostate with lower urinary tract symptoms H26.9 Unspecified cataract H61.22 Impacted cerumen, left ear Office Visit 03/25/2015 8:30a [facility] Laura Aparicio Z00.01 Encounter for Peyman Willis general adult medical exam w abnormal findings I10 Essential (primary) hypertension E78.2 Mixed hyperlipidemia M15.9 Polyosteoarthritis, unspecified M54.5 Low back pain R79.9 Abnormal finding of blood chemistry, unspecified H90.3 Sensorineural hearing loss, bilateral Z12.12 Encounter for screening for malignant neoplasm of rectum R53.81 Other malaise Z12.5 Encounter for screening for malignant neoplasm of prostate H40.9 Unspecified glaucoma N40.1 Enlarged prostate with lower urinary tract symptoms Z68.30 Body mass index (BMI) 30.0-30.9, adult H26.9 Unspecified cataract Z53.8 Procedure and treatment not carried out for other reasons Office Visit 09/27/2014 9:30a [facility] Laura Aparicio, 466.0 Bronchitis Acute M.D. 461.8 Sinusitis Acute Other 382.9 Otitis Media Unspec 786.2 Cough 786.05 Shortness Of Breath 478.19 Other Disease Of Nasal Cavity And Sinuses 780.79 Malaise And Fatigue Other 401.1 Hypertension Benign 272.2 Hyperlipidemia Mixed 715.90 Osteoarthrosis Unspec Genlzd Or Localized Site Unspec 724.2 Lumbago 389.8 Hearing Loss Other Spec Forms 790.6 Abnormal Blood Chemistry Other Office Visit 08/28/2014 8:45a [facility] Osei Ybarra 401.1 Hypertension Benign CORRECTIONS CADET 780.79 Malaise And Fatigue Other 272.2 Hyperlipidemia Mixed 715.90 Osteoarthrosis Unspec Genlzd Or Localized Site Unspec Office Visit 02/26/2014 9:30a [facility] Laura Aparicio 401.1 Hypertension Benign Lazaro WillisD. 724.2 Lumbago V76.41 Screening Malignant Neoplasm Rectum 715.90 Osteoarthrosis Unspec Genlzd Or Localized Site Unspec 272.2 Hyperlipidemia Mixed 600.00 Hypertrophy Prostate W/O Urinary Obstruction & Other Luts V76.44 Screening For Malig Everardo Prostate 780.79 Malaise And Fatigue Other 389.8 Hearing Loss Other Spec Forms 365.89 Glaucoma Other Spec 366.8 Cataract Other 790.6 Abnormal Blood Chemistry Other V70.0 Examination General Medical Routine AT Health Care Facility V64.3 Patient Declined Colonoscopy Office Visit 12/07/2013 11:30a [facility] Osei Ybarra CORRECTIONS CADET 906.1 Wound Open Extrem W/O Tendon Injury Late Effect V06.8 Combination Diseases Other Vaccination & Inoculation Office Visit 11/12/2013 9:15a [facility] Federico, E906.4 Bite Nonvenomous MARIE Edouard Arthropod 682.2 Cellulitis & Abscess Trunk Office Visit 09/04/2013 8:30a [facility] Federico, 401.1 Hypertension Benign SilkePERNELL sanchezP 724.2 Lumbago 715.90 Osteoarthrosis Unspec Genlzd Or Localized Site Unspec 272.2 Hyperlipidemia Mixed 600.00 Hypertrophy Prostate W/O Urinary Obstruction & Other Luts 780.79 Malaise And Fatigue Other 389.8 Hearing Loss Other Spec Forms 365.89 Glaucoma Other Spec 366.8 Cataract Other 790.6 Abnormal Blood Chemistry Other Office Visit 06/07/2013 8:45a [facility] Federico, 401.1 Hypertension Benign SilkePERNELLP 724.2 Lumbago 715.90 Osteoarthrosis Unspec Genlzd Or Localized Site Unspec 272.2 Hyperlipidemia Mixed 600.00 Hypertrophy Prostate W/O Urinary Obstruction & Other Luts 780.79 Malaise And Fatigue Other 389.8 Hearing Loss Other Spec Forms 365.89 Glaucoma Other Spec 366.8 Cataract Other 790.6 Abnormal Blood Chemistry Other Office Visit 05/09/2013 9:00a [facility] Federico, 401.1 Hypertension Benign Silke CORRECTIONS CADET 724.2 Lumbago 715.90 Osteoarthrosis Unspec Genlzd Or Localized Site Unspec 272.2 Hyperlipidemia Mixed 600.00 Hypertrophy Prostate W/O Urinary Obstruction & Other Luts 780.79 Malaise And Fatigue Other 389.8 Hearing Loss Other Spec Forms 365.89 Glaucoma Other Spec 366.8 Cataract Other Office Visit 05/02/2013 8:30a [facility] Federico, 401.1 Hypertension Benign Silke CORRECTIONS CADET 724.2 Lumbago 715.90 Osteoarthrosis Unspec Genlzd Or Localized Site Unspec 272.2 Hyperlipidemia Mixed 600.00 Hypertrophy Prostate W/O Urinary Obstruction & Other Luts 780.79 Malaise And Fatigue Other 389.8 Hearing Loss Other Spec Forms 365.89 Glaucoma Other Spec 366.8 Cataract Other Office Visit 02/13/2013 9:15a [facility] Laura Aparicio 401.1 Hypertension Benign M., M.D. 724.2 Lumbago 715.90 Osteoarthrosis Unspec Genlzd Or Localized Site Unspec 272.2 Hyperlipidemia Mixed 600.00 Hypertrophy Prostate W/O Urinary Obstruction & Other Luts 780.79 Malaise And Fatigue Other 389.8 Hearing Loss Other Spec Forms 365.89 Glaucoma Other Spec 366.8 Cataract Other Office Visit 11/13/2012 11:15a [facility] Laura Aparicio 401.1 Hypertension Benign M., M.D. 724.2 Lumbago 715.90 Osteoarthrosis Unspec Genlzd Or Localized Site Unspec 272.2 Hyperlipidemia Mixed 600.00 Hypertrophy Prostate W/O Urinary Obstruction & Other Luts 780.79 Malaise And Fatigue Other 389.8 Hearing Loss Other Spec Forms Office Visit 10/30/2012 1:15p [facility] Laura Aparicio 401.1 Hypertension Benign M., MKarinaD. 724.2 Lumbago 715.90 Osteoarthrosis Unspec Genlzd Or Localized Site Unspec 272.2 Hyperlipidemia Mixed 600.00 Hypertrophy Prostate W/O Urinary Obstruction & Other Luts 780.79 Malaise And Fatigue Other Office Visit 08/17/2012 9:30a [facility] Laura Aparicio 401.1 Hypertension Benign M., M.D. 724.2 Lumbago 715.90 Osteoarthrosis Unspec Genlzd Or Localized Site Unspec 272.2 Hyperlipidemia Mixed 600.00 Hypertrophy Prostate W/O Urinary Obstruction & Other Luts 780.79 Malaise And Fatigue Other 365.89 Glaucoma Other Spec 366.8 Cataract Other Office Visit 08/03/2012 9:00a [facility] Laura Aparicio 401.1 Hypertension Maycol Willis M.D. 724.2 Lumbago 715.90 Osteoarthrosis Unspec Genlzd Or Localized Site Unspec 272.2 Hyperlipidemia Mixed 600.00 Hypertrophy Prostate W/O Urinary Obstruction & Other Luts 780.79 Malaise And Fatigue Other 365.89 Glaucoma Other Spec 366.8 Cataract Other Office Visit 07/25/2012 9:30a [facility] Laura Aparicio 401.1 Hypertension Maycol Willis M.D. 724.2 Lumbago 715.90 Osteoarthrosis Unspec Genlzd Or Localized Site Unspec 272.2 Hyperlipidemia Mixed 600.00 Hypertrophy Prostate W/O Urinary Obstruction & Other Luts 780.79 Malaise And Fatigue Other 365.89 Glaucoma Other Spec 366.8 Cataract Other Office Visit 03/01/2012 2:15p Laura Chowdhury M.D. 724.2 Lumbago 599.70 Hematuria, Unspecified 401.1 Hypertension Benign 600.00 Hypertrophy Prostate W/O Urinary Obstruction & Other Luts Office Visit 02/28/2012 10:30a [facility] Laura Aparicio 401.1 Hypertension Maycol Willis M.D. 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 Gastroenteritis Presumed Infectious Orig 787.01 Nausea W/ Vomiting 458.9 Hypotension Unspec 401.1 Hypertension Benign 724.1 Pain Thoracic Spine 715.90 Osteoarthrosis Unspec Genlzd Or Localized Site Unspec Office Visit 10/07/2011 10:00a [facility] Laura Aparicio 401.1 Hypertension Benign M., M.DKarina 715.90 Osteoarthrosis Unspec Genlzd Or Localized Site Unspec Office Visit 06/25/2011 9:15a [facility] Laura Aparicio 401.1 Hypertension Benign M., M.D. 272.2 Hyperlipidemia Mixed 600.00 Hypertrophy Prostate W/O Urinary Obstruction & Other Luts 715.90 Osteoarthrosis Unspec Genlzd Or Localized Site Unspec Office Visit 06/04/2011 9:15a [facility] Laura Aparicio 796.2 Blood Pressure M., M.D. Reading Elevated W/O Hypertension 401.1 Hypertension Benign 272.2 Hyperlipidemia Mixed Office Visit 05/31/2011 1:15p [facility] Laura Aparicio 401.1 Hypertension Benign M. M.DKarina 382.9 Otitis Media Unspec 780.4 Dizziness & Giddiness Office Visit 09/01/2010 10:00a [facility] Laura Aparicio 401.1 Hypertension Benign M., M.DKarina 369.9 Visual Loss Unspec 272.2 Hyperlipidemia Mixed V72.84 Examination Preoperative Unspec Office Visit 08/13/2010 9:30a [facility] Laura Aparicio 401.1 Hypertension Benign M., M.D. 272.2 Hyperlipidemia Mixed 719.46 Pain Joint Lower Leg 600.00 Hypertrophy Prostate W/O Urinary Obstruction & Other Luts Office Visit 07/30/2010 9:15a [facility] Laura Aparicio 401.1 Hypertension Benign M., M.D. 272.2 Hyperlipidemia Mixed 719.46 Pain Joint Lower Leg 600.00 Hypertrophy Prostate W/O Urinary Obstruction & Other Luts Office Visit 06/18/2010 11:15a [facility] Laura Aparicio 796.2 Blood Pressure M., M.D. Reading Elevated W/O Hypertension 401.1 Hypertension Benign 786.2 Cough 461.8 Sinusitis Acute Other Office Visit 07/15/2009 9:30a [facility] Laura Aparicio M., 382.9 Otitis Media M.D. Unspec 466.0 Bronchitis Acute 786.2 Cough 461.8 Sinusitis Acute Other Office Visit 04/29/2009 9:30a [facility] Laura Aparicio 401.1 Hypertension Benign M., M.D. 272.2 Hyperlipidemia Mixed 719.46 Pain Joint Lower Leg Office Visit 04/22/2009 9:00a [facility] MarkusZhangraya 401.1 Hypertension Benign Peyman Willis 272.2 Hyperlipidemia Mixed Plan of Treatment 10/26/2018 - Laura Aparicio M.D.R11.2 Nausea with vomiting, unspecifiedComments:PT SENT TO [facility] FOR FURTHER EVALUATION AND TXR42 Dizziness and giddinessComments:[id number] HeadacheComments:TYLENOL OR MOTRIN PRNI10 Essential (primary) hypertensionComments:CHECK BP TIW ( PRN)F/U LABDIET AND FLUID COUNSELING LOW SODIUM DIETWT LOSSF/U LABE78.2 Mixed hyperlipidemiaComments:DIET REVIEWED CONTINUE DIETWT LOSSF/U LAB FBWM15.9 Polyosteoarthritis, unspecifiedComments:EXERCISE/HEAT/MESSAGETYLENOL OR MOTRIN PRNAVOID HEAVY LIFTINGWT LOSSN40.1 Benign prostatic hyperplasia with lower urinary tract symptoComments:F/U WITH PYKBQZFG47.09 Other abnormal glucoseComments:HGBA1C AT REGULAR INTERVALS LOW SUGAR/CARB DIET REVIEWEDDISCUSSED PREVENTIVE DIABETES CLJVKPMCR34.5 Low back painComments: EXERCISE/HEAT /MESSAGEAVOID HEAVY LIFTING WT LOSSTYLENOL OR MOTRIN PRNH90.3 Sensorineural hearing loss, bilateralComments:USE HEARING AID OBSERVE F/U WITH ENT PRNE53.9 Vitamin B deficiency, unspecifiedComments:COUNSELED RE DIET/ AVOID ALCOHOL USE F/U LABSH40.9 Unspecified glaucomaComments:USE GLASSES F/U [facility] KWKIWXMCAHWINQ78.13 Benign paroxysmal vertigo, bilateralComments:CMZGFGV82.9 Vitamin D deficiency, unspecifiedComments:INCREASE EXPOSURE TO SUNREVIEW OF DIETF03.90 Unspecified dementia without behavioral disturbanceComments: COUNCELLING AND REASSURANCE LTC PLANS DISSCUSED WITH PT / FAMILY YLUFXSZ18.9 Atopic dermatitis, unspecifiedComments:SKIN CARE INSTRUCTIONS LOTION OR BABY OIL 2-3 APPLICATION PER DAYUSE MOISTURIZING SOAPAVOID PROLONGED WATER EXPOSUREAVOID USING HOT WATER IN YGINGBM74.9 Allergic rhinitis, unspecifiedComments:INCREASE PO FLUID USE ANTIHISTAMINE PRN SECOND HAND SMOKING AVOIDANCE
[2018-10-26] MEDS ORDERED: NS 0.9% 500 ML* 500 ML IV ONE (17:59)
[2018-10-26 18:31] LABS: ABS Lymphocytes 0.8 10^3/ul (1.0-4.8); ABS Monocytes 0.6 10^3/ul (0-0.8); ABS Neutrophils 9.2 10^3/ul (1.5-7.7); Eosinophil % 0.4 %; Hematocrit 42 % (42-52); Hemoglobin 14.3 g/dL (14.0-18.0); Lymphocyte % 7.9 %; Mean Corpuscular HGB Conc 34 g/dL (31-36); Mean Corpuscular Hemoglobin 30 pg (27-31); Mean Corpuscular Volume 89 fL (80-94); Mean Platelet Volume 7.4 fL (7.4-10.4); Nucleated Red Blood Cells % 0.1; Platelet Count 215 10^3/uL (150-450); Red Blood Count 4.75 10^6 /uL (4.18-5.48); Red Cell Distribution Width 14 % (10.5-15); White Blood Count 10.7 10^3/uL (3.5-10.8)
--- NOTE | 2018-10-26 18:45 | ED ---
Complex/Multi-Sys Presentation - HPI Summary HPI Summary: This patient is an 83 year old M presenting to ED accompanied by family with a chief complaint of overall not feeling well since 1530 s/p working on a lawnmower for 1.5 hours. He was working on it in a garage where it was a bit hot. The lawnmower was not running at any point. After he started not to feel well, he went into the house and told his family that he wasnt feeling well. They put a cold compress on his head and took him to see his PCP who recommended that he come to the ED. The patient reports he was feeling great yesterday and the day before. The patient rates the pain 0/10 in severity. Symptoms aggravated by nothing. Symptoms alleviated by nothing. Patient reports fatigue, N/V then continuous dry heaving, slight dizziness, and LO. Family reports he had a bit of rhinorrhea and cough. Patient denies CP, SOB, LOC, near syncope, diarrhea, and abdominal pain. PMHx of TIA, sleep apnea (is on CPAP), and HTN. Denies hx of KS, stents, and bypass. The family reports hes had previous episodes of dizzy spells for many years. - History Of Current Complaint Chief Complaint: EDGeneral Time Seen by Provider: 10/26/18 17:52 Hx Obtained From: Patient - Allergies/Home Medications Allergies/Adverse Reactions: Allergies Allergy/AdvReac Type Severity Reaction Status Date / Time No Known Allergies Allergy Verified 10/26/18 17:12 Home Medications: Home Medications Amlodipine/Benazepril 1 cap PO DAILY 10/26/18 [History Confirmed 10/26/18] Aspirin EC TAB* [Ecotrin EC Low Dose 81 MG*] 81 mg PO DAILY 10/26/18 [History Confirmed 10/26/18] Brimonid/Timolol 0.2/0.5%(NF) [Combigan 0.2/0.5% (NF)] 1 drop OPHTHALMIC BID [History Confirmed 10/26/18] Latanoprost 0.005%* [Xalatan 0.005%*] 1 drop BOTH EYES QPM 10/26/18 [History Confirmed 10/26/18] PMH/Surg Hx/FS Hx/Imm Hx Endocrine/Hematology History: Denies: Hx Diabetes Cardiovascular History: Reports: Hx Hypertension Denies: Hx Pacemaker/ICD History: Denies: Hx Renal Disease Sensory History: Reports: Hx Hearing Aid Psychiatric History: Denies: Hx Panic Disorder - Surgical History Surgery Procedure, Year, and Place: LEFT HIP REPLACEMENT. CATARACTS. PRESSURE RELEASED FROM EYES Infectious Disease History: Yes Infectious Disease History: Denies: Traveled Outside the [place] in Last 30 Days - Family History Known Family History: Positive: Other Family History: mother - lung CA - Social History Alcohol Use: Occasionally Substance Use Type: Reports: None Smoking Status (MU): Never Smoked Tobacco Review of Systems Positive: Fatigue. Negative: Fever, Chills Negative: Erythema Positive: Nasal Discharge Negative: Chest Pain Positive: Cough. Negative: Shortness Of Breath Positive: Vomiting - and dry heaving, Nausea. Negative: Abdominal Pain, Diarrhea Negative: dysuria, hematuria Negative: Myalgia, Edema Negative: Rash Neurological: Other - slight dizziness Positive: Headache. Negative: Syncope - and denies near-syncope All Other Systems Reviewed And Are Negative: Yes Physical Exam - Summary Physical Exam Summary: Constitutional: Well-developed, Well-nourished, Alert. (-) Distressed Skin: Warm, Dry HENT: Normocephalic; Atraumatic. Dry mucous membranes. Eyes: Conjunctiva normal Neck: Musculoskeletal ROM normal neck. (-) JVD, (-) Stridor, (-) Tracheal deviation Cardio: Rhythm regular, rate normal, Heart sounds normal; Intact distal pulses; The pedal pulses are 2+ and symmetric. Radial pulses are 2+ and symmetric. (-) Murmur Pulmonary/Chest wall: Effort normal. (-) Respiratory distress, (-) Wheezes, (-) Rales Abd: Soft, (-) tenderness, (-) Distension, (-) Guarding, (-) Rebound Musculoskeletal: (-) Edema Lymph: (-) Cervical adenopathy Neuro: Alert, Oriented x3 Psych: Mood and affect Normal Triage Information Reviewed: Yes Vital Signs On Initial Exam: Initial Vitals Temp Pulse Resp BP Pulse Ox 97.2 F 102 14 142/78 96 10/26/18 17:10 10/26/18 17:10 10/26/18 17:10 10/26/18 17:10 10/26/18 17:10 Vital Signs Reviewed: Yes Diagnostics - Vital Signs Vital Signs Temp Pulse Resp BP Pulse Ox 10/26/18 17:10 97.2 F 102 14 142/78 96 - Laboratory Lab Results: Lab Results 10/26/18 Range/Units 18:23 WBC 10.7 (3.5-10.8) 10^3/uL RBC 4.75 (4.18-5.48) 10^6 /uL Hgb 14.3 (14.0-18.0) g/dL Hct 42 (42-52) % MCV 89 (80-94) fL MCH 30 (27-31) pg MCHC 34 (31-36) g/dL RDW 14 (10.5-15) % Plt Count 215 (150-450) 10^3/uL MPV 7.4 (7.4-10.4) fL Neut % (Auto) 86.0 % Lymph % (Auto) 7.9 % [place] % (Auto) 5.4 % Eos % (Auto) 0.4 % Baso % (Auto) 0.3 % Absolute Neuts (auto) 9.2 H (1.5-7.7) 10^3/ul Absolute Lymphs (auto) 0.8 L (1.0-4.8) 10^3/ul Absolute Monos (auto) 0.6 (0-0.8) 10^3/ul Absolute Eos (auto) 0.0 (0-0.6) 10^3/ul Absolute Basos (auto) 0.0 (0-0.2) 10^3/ul Absolute Nucleated RBC 0.0 10^3/ul Nucleated RBC % 0.1 Result Diagrams: 10/27/18 05:55 10/27/18 05:55 Lab Statement: Any lab studies that have been ordered have been reviewed, and results considered in the medical decision making process. - Radiology CXR Radiology Interpretation Completed By: ED Physician Summary of Radiographic Findings: No acute disease. Pending radiologist official report. - EKG 1757 Cardiac Rate: NL - 83 BPM EKG Rhythm: Sinus Rhythm Complex Multi-Symp Course/Dx Assessment/Plan: This patient is an 83 year old M presenting to ED accompanied by family with a chief complaint of overall not feeling well since 1530 s/p working on a lawnmower for 1.5 hours. In the ED course, the patient was given fluids. CXR reveals no acute disease. EKG reveals NSR at [address] Bermudez at 1915 and she accepts the patient for admission. The patient will be admitted with dx of dehydration, vomiting and dizziness. Patient understands and agrees with this plan. - Diagnoses Differential Diagnoses/HQI/PQRI: Other - dehydration, vomiting, and dizziness Provider Diagnoses: Dehydration, Vomiting, Dizziness - Physician Notifications Discussed Care Of Patient With: Beatrice Bermudez Time Discussed With Above Provider: 19:15 Instructed by Provider To: Admit As Inpatient Discharge - Sign-Out/Discharge Documenting (check all that apply): Patient Departure - admit Patient Received Moderate/Deep Sedation with Procedure: No - Discharge Plan Condition: Stable Disposition: ADMITTED TO [facility] - Billing Disposition and Condition Condition: STABLE Disposition: Admitted to [facility] - Attestation Statements Document Initiated by [place]: Yes Documenting Scribe: Jj Lee Provider For Whom Topheribe is Documenting (Include Credential): William Ross MD Scribe Attestation: Jj Oliva, scribed for William Ross MD on 10/27/18 at 0812. Scribe Documentation Reviewed: Yes Provider Attestation: The documentation as recorded by the Jj daniel accurately reflects the service I personally performed and the decisions made by William murphy MD Status of Scribe Document: Viewed
[2018-10-26 18:49] LABS: Albumin 4.5 g/dL (3.2-5.2); Albumin/Globulin Ratio 1.6 (1-3); BUN/Creatinine Ratio 19.9 (8-20); Calcium 9.6 mg/dL (8.6-10.3); EGFR African American 60.6 (>60); Globulin 2.9 g/dL (2-4); Potassium 3.6 mmol/L (3.5-5.0); Total Bilirubin 0.4 mg/dL (0.2-1.0); Total Protein 7.4 g/dL (6.4-8.9)
[2018-10-26] MEDS ORDERED: Ondansetron INJ* 2 MG/ML VIAL IV ONE (20:07)
[2018-10-26] MEDS ORDERED: Acetaminophen TAB* 325 MG PO PRN (21:03)
[2018-10-26] MEDS ORDERED: Morphine INJ* 2 MG/ML 1 ML SYRINGE (TWO MG - NEW SYRINGE VERSION) IV PRN (21:03)
[2018-10-26] MEDS ORDERED: NS 0.9% 1000 ML** 1,000 ML IV SCH (21:15)
[2018-10-26] MEDS ORDERED: PROCHLORPERAZINE INJ 5 MG/ML 2 ML VIAL IV PRN (21:15)
[2018-10-26 22:06] LABS: Urine Appearance Cloudy; Urine Bacteria Absent (Absent); Urine Bilirubin Negative (Negative); Urine Blood Negative (Negative); Urine Color Yellow; Urine Glucose Negative (Negative); Urine Ketones 1+ (Negative); Urine Nitrite Negative (Negative); Urine Protein Negative (Negative); Urine Red Blood Cell Trace(0-2/hpf) (Absent); Urine Specific Gravity 1.015 (1.010-1.030); Urine Squamous Epithelial Cell Present (Absent); Urine Urobilinogen Negative (Negative); Urine White Blood Cell Trace(0-5/hpf) (Absent)
--- NOTE | 2018-10-26 22:10 | HP ---
CC: Dr. Aparicio; Dr. Arteaga * HISTORY AND PHYSICAL: DATE OF ADMISSION: 10/26/18 PRIMARY CARE PROVIDER: Dr. Aparicio. NEUROLOGIST: Dr. Arteaga. CHIEF COMPLAINT: Nausea, vomiting, and headache. HISTORY OF PRESENT ILLNESS: Mr. Raines is an 83-year-old male with history of CVA with no residual deficits that occurred "several years ago" who stated that he was working and repairing his finnish rubber for approximately an hour and all of a sudden developed frontal headache that was severe, 7/10, pressure like, and subsequent nausea and vomiting. He apparently had so much nausea and vomiting that he went into his primary care provider who stated that he may need to go to the ER for evaluation due to possibility of dehydration. The patient's headache currently has resolved. He last vomited approximately half an hour prior to my visit. Currently, he does not feel nauseated anymore. He is going to be placed on overnight observation with a diagnosis of nausea and vomiting. Please note that the patient stated that he was repairing his mower today mid day. Last meal he had was breakfast that was half a breakfast sandwich and half a banana. The patient denies any abdominal pain. He stated that the headache happened suddenly, but he did not feel hot when he was repairing his mower, it was in his garage with open door and the mower was not running. The patient denies any dizziness or lightheadedness. He is going to be placed on overnight observation on telemetry monitored bed. PAST MEDICAL HISTORY: 1. 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 2. History of obstructive sleep apnea, on CPAP. 3. 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 4. History of hypertension. 5. History of dyslipidemia. 6. BPH. 7. Glaucoma. 8. Hearing loss. 9. Kidney stones in February 2012. 10. Hip replacement on left in 1998. MEDICATIONS: At home include: 1. Aspirin 81 mg daily. 2. Xalatan eye drops 1 drop both eyes q.p.m. 3. Amlodipine/benazepril 10/40 one tablet daily. 4. Combigan 0.2/0.5% one drop b.i.d. both eyes. 5. Hydrochlorothiazide 25 mg daily. ALLERGIES: No known drug allergies. FAMILY HISTORY: Father who had history of congestive heart failure and mother with history of hypertension and breast cancer who of breast cancer. SOCIAL HISTORY: The patient is , lives with his , who is his surrogate. He is a retired teacher. There is no history of smoking tobacco and rarely drinks alcohol. Denies any drug use. REVIEW OF SYSTEMS: The patient has been in his usual state of health. He is hard of hearing at his baseline. He denies any visual deficits. His headache is resolved. He just vomited half an hour ago and he denies any further nausea. He denies any abdominal pain. He has not been having an out of ordinary different diet than usual. His last meal was breakfast with a banana and a breakfast sandwich. He denies any unsteady gait. All the remaining 12 systems were reviewed with the patient and were otherwise negative. PHYSICAL EXAMINATION GENERAL: The patient is a very pleasant 83-year-old female, who is in no acute distress. Alert, awake, and oriented x3. VITAL SIGNS: Blood pressure of 144/83, heart rate of 85 and regular, respiratory rate 17, oxygen saturation 97% on room air, temperature 97.7. HEENT: Head: Atraumatic, normocephalic. Eyes: Pupils equal and reactive to light and accommodation. Oropharynx clear. Mucosa moist. NECK: Supple. No JVD. No bruits bilaterally. RESPIRATORY: Clear to auscultation bilaterally. CARDIOVASCULAR: Regular rate and rhythm. No murmur. ABDOMEN: Soft, nontender. Bowel sounds are present in all 4 quadrants. EXTREMITIES: There is no edema. Pulses are +2 bilaterally. No clubbing or cyanosis. NEUROLOGIC: On neuro evaluation, speech is clear. Cranial nerves II through XII grossly intact. Motor strength is 5/5 bilaterally. The patient is slightly hard of hearing. On further neuro evaluation, the patient's finger to nose has not been dysmetric. Motor strength was 5/5 bilaterally. Speech clear. SKIN: On evaluation of the skin, no ecchymotic areas or rashes noted. DIAGNOSTIC STUDIES/LAB DATA: Laboratory data showed white blood cell count of 10.7, hemoglobin of 14.3, hematocrit of 42, and platelets of 215,000. Sodium was 139, potassium 3.6, chloride 102, carbon dioxide 27, BUN 27, creatinine 1.36. Liver function tests were unremarkable. Troponin of 0. Followup troponin is pending at the time of dictation. The patient's portable chest x-ray reviewed by myself prior to the radiologist' s report showed no acute cardiopulmonary abnormality. The patient's EKG showed normal sinus rhythm with a heart rate of 83 beats per minute with borderline prolonged QT at 487. ASSESSMENT AND PLAN: 1. Intractable nausea, vomiting and headache. At this point, I worry about a neurologic origin of the patient's presentation. A CT of brain is going to be obtained and if the patient continues to have problems, he may need an MRI in the morning. I will observe him on a telemetry monitored bed and continue neuro checks throughout the patient's hospital stay. 2. The patient may have an intractable nausea and vomiting due to gastroenteritis. I will place the patient on gentle intravenous fluids and his Compazine for nausea due to the patient's QT prolongation. 3. In regards to the patient's treatment for hypertension, we will continue most of his medications and benazepril was going to be held for the time being. 4. For DVT prophylaxis, the patient is going to be placed on heparin subcutaneously. 5. The patient's code status is full. His surrogate is his . TIME SPENT: Approximately 65 minutes were spent on admission of this patient, more than half of that time was spent [id number] with the patient during the interview and physical exam. [id number]/[facility] #: [id number] PRASHANTHD
[2018-10-26] MEDS: Heparin VIAL(*) 5000 UNITS/ML VIAL (FIVE THOUSAND) SUBCUT SCH (23:16)
[2018-10-26] MEDS ORDERED: amLODIPine TAB* 5 MG PO SCH (23:50)
[2018-10-27] MEDS: Heparin VIAL(*) 5000 UNITS/ML VIAL (FIVE THOUSAND) SUBCUT SCH (05:11)
[2018-10-27 06:02] LABS: ABS Eosinophils 0.1 10^3/ul (0-0.6); ABS Lymphocytes 1.3 10^3/ul (1.0-4.8); ABS Monocytes 0.8 10^3/ul (0-0.8); ABS Neutrophils 5.1 10^3/ul (1.5-7.7); Eosinophil % 1.2 %; Hematocrit 38 % (42-52); Hemoglobin 13.2 g/dL (14.0-18.0); Lymphocyte % 18.1 %; Mean Corpuscular HGB Conc 35 g/dL (31-36); Mean Corpuscular Hemoglobin 30 pg (27-31); Mean Corpuscular Volume 87 fL (80-94); Mean Platelet Volume 7.4 fL (7.4-10.4); Nucleated Red Blood Cells % 0.1; Platelet Count 214 10^3/uL (150-450); Red Blood Count 4.36 10^6 /uL (4.18-5.48); Red Cell Distribution Width 13 % (10.5-15); White Blood Count 7.4 10^3/uL (3.5-10.8)
[2018-10-27 06:25] LABS: Calcium 8.5 mg/dL (8.6-10.3); EGFR African American 75.8 (>60); EGFR Non-African American 62.6 (>60); Potassium 3.3 mmol/L (3.5-5.0)
[2018-10-27] MEDS ORDERED: Potassium Chlor TAB* 20 MEQ TAB.ER PO ONE (08:16)
[2018-10-27 08:51] VITALS: BP 135/74
[2018-10-27] MEDS ORDERED: Brimonid/Timolol 0.2/0.5%(NF) 10 ML OPHTH.SOLN BOTH EYES SCH (09:00)
[2018-10-27] MEDS ORDERED: Aspirin EC TAB* 81 MG TAB.EC PO SCH (09:00)
[2018-10-27] MEDS ORDERED: Hydrochlorothiazide TAB* 25 MG PO SCH (09:00)
--- NOTE | 2018-10-27 11:03 | DS ---
CC: Dr. Aparicio; Dr. Arteaga* DISCHARGE SUMMARY: DATE OF ADMISSION: 10/26/18 DATE OF DISCHARGE: 10/27/18 PRIMARY CARE PROVIDER: Dr. Aparicio. ATTENDING PHYSICIAN: Dr. Valerie Lyn* (dictated by Cristy Quick NP). OUTPATIENT NEUROLOGIST: Dr. Arteaga. PRIMARY DIAGNOSES: 1. Headache. 2. Nausea and vomiting. SECONDARY DIAGNOSES: 1. History of cerebrovascular accident with no residual deficit several years ago. 2. Obstructive sleep apnea, on continuous positive airway pressure. 3. 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 4. History of hypertension. 5. History of hyperlipidemia. 5. Benign prostatic hyperplasia. 6. Glaucoma. 7. Hearing loss. 8. Kidney stones in February 2012. 9. Hip replacement in 1998. STUDIES WHILE IN THE HOSPITAL: 1. Chest x-ray: Impression: No active cardiopulmonary disease. 2. EGD: Impression: Normal sinus rhythm. 3. Brain CT: Impression: Little change from 02/09/12. No acute interval intracranial process identified. Minimal chronic ischemic white matter change and atrophy. Minimal left sphenoid sinus disease. DISCHARGE HOME MEDICATIONS: [place] Medications: No new home medications. Continued Home Medications: 1. Aspirin 81 mg p.o. daily. 2. Latanoprost 0.005% one both eyes q.p.m. 3. Amlodipine/benazepril 10/40 one tab p.o. daily. 4. Combigan 0.2/0.5% one drop ophthal b.i.d. 5. Hydrochlorothiazide 25 mg p.o. daily. HISTORY OF PRESENT ILLNESS /HOSPITAL COURSE: Ms. Raines is an 83-year-old male with a past medical history significant for CVA, obstructive sleep apnea, hypertension for 15 years; who presented to the emergency department on with complaints of not feeling well, headache, nausea, vomiting. Please see history and physical dictated by Anastacia Velásquez MD, for complete summary of the events leading up to hospitalization, but in short, the patient had a sudden onset of headache and later had nausea and vomiting. He presented to emergency room on the direction of his primary care provider. While in the ED, the patient received IV fluids and symptoms resolved. The patient was noted to have no neurological deficits at that time. While in the emergency room, the patient also had CT of the brain which was unremarkable as mentioned above. The patient was admitted to telemetry where he remained in sinus rhythm. The patient had routine neuro checks, which remained unchanged. The patient has remained symptom-free. The patient is stable for discharge. Vital signs are temp 98.1, HR 85, RR 22, O2 saturation 97% on room air, BP 140/ 79. REVIEW OF SYSTEMS: A 14-point review of systems was completed and all were negative. PHYSICAL EXAM: General: Mr. Raines is an 83-year-old male, who is sitting in bed. His is at the bedside. He appears to be in no acute distress. Appears stated age. HEENT: EOMs intact. PERRLA. Oral mucosa is moist without lesion. Posterior pharynx is clear. Neck: Supple. No lymphadenopathy. Cardiac: S1, S2 present. Regular rate and rhythm. No murmurs, rubs or gallops. No carotid bruits or thrills. Respiratory: Lungs clear to auscultation. Good aeration. No wheezes, rhonchi, or rubs. Abdomen: Soft, nontender. Bowel sounds normoactive. Extremities: No clubbing or cyanosis. No edema. Pedal pulses are 2+ bilaterally. Musculoskeletal: No pain or deformities. Skin: Skin is intact without lesions. Neuro: Cranial nerves II through XII are grossly intact. Coordination intact. Sensation intact. No drift. No dysphagia. Strength is 5/5 in upper and lower extremities. DIAGNOSTIC STUDIES/LABORATORY DATA: WBC 7.4, hemoglobin 13.2, hematocrit 38, platelets 214. Sodium 139, potassium 3.3, chloride 105, carbon dioxide 28, BUN 19, creatinine 1.12, glucose 108. DISCHARGE PLAN/FOLLOWUP: 1. Headache: As mentioned in the HPI, the patient's headache resolved with the administration of IV fluids. I suspect the patient's headache was secondary to dehydration and possible viral illness. The patient's reports that he does not like to drink water and only drinks coffee. In addition, he is on HCTZ which could be increasing the risk for dehydration. I have encouraged the patient to increase his water intake, especially when working outside in the heat. Given the patient's history, we did discuss the possibility of an MRI and the family declined, which I think this is reasonable. The patient is to follow up with Dr. Arteaga closely and I have encouraged the patient to follow up with him in the next 1 to 2 weeks if it is possible. 2. Nausea and vomiting: The patient had nausea and vomiting at home associated with the headache. The patient has had no nausea or vomiting here in the hospital. I suspect this is also secondary to dehydration or viral illness. I have encouraged the patient to increase fluid intake. The patient should start with a bland diet and advance as tolerated. 3. Hypokalemia: The patient's potassium is noted to be 3.3 today, which is slightly below goal. I have ordered potassium replacement to be given to the patient prior to discharge. I would encourage the patient to follow up with his primary care provider in one week for a repeat BMP to reassess his potassium. The patient is at risk for hypokalemia given HCTZ and dehydration. 4. History of CVA: The patient is to follow up with Dr. Arteaga and he should follow up with him in 1 to 2 weeks. The patient should continue his aspirin. 5. Obstructive sleep apnea: The patient should continue his CPAP. 6. Memory deficit most likely mild dementia: reports that the patient follows up with Dr. Arteaga to monitor if he has memory decline. 7. Hypertension: The patent has been normotensive while here in the hospital. The patient should continue his home medications as same. 8. Hyperlipidemia: The patient is not currently on a statin and we did not gather fasting lipids this morning. Given the patient's history of CVA, would encourage fasting lipids to be obtained via primary care provider and addressed accordingly. 9. Followup: As mentioned above, I have discussed with the patient and the they should follow up with Dr. Arteaga in 1 to 2 weeks. They should also follow up with their primary care provider in 1 week for a repeat BMP. 10. Education: I have educated the patient and the of signs and symptoms of new worsening condition and when to return to the emergency department. Both state understanding. This is a summarized report of a complex medical history and hospital stay. For further details, please see the entire medical record. TIME SPENT: Approximately 35 minutes was spent on this discharge, greater than half of the time was spent face to face with the patient discussing discharge plans and instructions. CRISTY QUICK, BAN [id number]/[facility] #: [id number] [facility]Deb
[2018-10-27] MEDS ORDERED: Latanoprost 0.005%* 2.5 ml BTL BOTH EYES SCH (18:00)
== END 2018-10-27 09:30 | disposition home or self-care (01) ==
LOC: ED 17:04 → MEDTELE 21:03
PROVIDERS: ADMIT Internal Medicine; ATTEND Internal Medicine
DX: R51 Headache (principal); R11.2 Nausea with vomiting, unspecified; Z86.73 Personal history of transient ischemic attack (TIA), and cerebral infarction without residual deficits; G47.33 Obstructive sleep apnea (adult) (pediatric); F03.90 Unspecified dementia, unspecified severity, without behavioral disturbance, psychotic disturbance, mood disturbance, and anxiety; I10 Essential (primary) hypertension; E78.5 Hyperlipidemia, unspecified; N40.0 Benign prostatic hyperplasia without lower urinary tract symptoms; H40.9 Unspecified glaucoma; H91.90 Unspecified hearing loss, unspecified ear; Z87.442 Personal history of urinary calculi; Z96.649 Presence of unspecified artificial hip joint; Z79.82 Long term (current) use of aspirin; R53.83 Other fatigue
CPT/HCPCS: 36415; 70450; 71045; 80048; 80053; 81003; 81015; 82375; 83605; 84484; 85025; 87086; 93005; 94660; 96372; 96374; 99284; A9270-GY; G0378; J1644; J2405